=== PATIENT | female | born 1980 | race Caucasian/White ===

== ENCOUNTER 2019-03-26 15:46 | Outpatient (CLI) | payer OTHER ==
[2019-03-26 16:57] LABS: #Eosinphils 0.1 thou/uL (0.0-0.7); #Lymphocytes 1.8 thou/uL (1.20-3.40); #Monocytes 0.4 thou/uL (0.11-0.59); #Neutrophils 3.2 thou/uL (1.40-6.50); %Basophils 0.9 % (0.0-1.0); %Lymphocytes 32.8 % (21.0-51.0); %Monocytes 7.4 % (0.0-10.0); %Neutrophils 57.9 % (42.0-75.0); Hemoglobin 10.4 g/dL (12.0-16.0); Mean Corpuscular HGB CONC 32.1 g/dL (32.0-36.0); Mean Corpuscular Hemoglobin 28.5 pg (27.0-31.0); Mean Corpuscular Volume 88.6 fL (78.0-98.0); Mean Platelet Volume 7.3 fL (7.4-10.4); Platelet Count 252 thou/uL (130-400); RBC Distribution Width 15.4 % (11.5-14.5); Red Blood Cell (RBC) Count 3.66 mill/uL (4.20-5.40); White Blood Cell (WBC) Count 5.5 thou/uL (4.8-10.8)
[2019-03-26 17:20] LABS: BHCG - Serum Negative (NEGATIVE); Pregs Control Background? CLEAR/WHITE (CLR/WHITE); Pregs Control Bar Appear? YES (CONTROL BAR)
== END 2019-03-26 15:47 | disposition home or self-care (01) ==
LOC: LABBT 15:46
PROVIDERS: ATTEND Surgery
DX: Z01.812 Encounter for preprocedural laboratory examination (principal); M79.5 Residual foreign body in soft tissue
CPT/HCPCS: 74177; 80053; 81003; 83605; 84703; 85025; 87040; 87086; J2270; J2405

== ENCOUNTER 2019-03-26 19:41 | Emergency (ER) | payer OTHER ==
[~2019-03-26 19:41] MED LIST: ISOVUE-370 76%-LOCM 1 ML ONE
[2019-03-26] MEDS ORDERED: Ondansetron PF 4 MG/2 ML Vial ONE ×2 (20:32→22:25)
[2019-03-26 20:33] LABS: #Eosinphils 0.1 thou/uL (0.0-0.7); #Monocytes 0.5 thou/uL (0.11-0.59); #Neutrophils 2.7 thou/uL (1.40-6.50); %Basophils 0.3 % (0.0-1.0); %Eosinophils 1.1 % (0.0-10.0); %Lymphocytes 37.4 % (21.0-51.0); %Monocytes 8.9 % (0.0-10.0); %Neutrophils 52.3 % (42.0-75.0); Hemoglobin 10.2 g/dL (12.0-16.0); Mean Corpuscular HGB CONC 32.5 g/dL (32.0-36.0); Mean Corpuscular Hemoglobin 28.5 pg (27.0-31.0); Mean Corpuscular Volume 87.8 fL (78.0-98.0); Mean Platelet Volume 7.6 fL (7.4-10.4); Platelet Count 253 thou/uL (130-400); RBC Distribution Width 15.5 % (11.5-14.5); Red Blood Cell (RBC) Count 3.56 mill/uL (4.20-5.40); White Blood Cell (WBC) Count 5.3 thou/uL (4.8-10.8)
[2019-03-26] MEDS ORDERED: Morphine 4 MG/ML VIAL ONE (20:47)
[2019-03-26 20:57] LABS: ALT (SGPT) 33 U/L (8-55); AST (SGOT) 35 U/L (5-34); Albumin 3.6 g/dL (3.5-5.0); Alkaline Phosphatase 93 U/L (40-110); Anion Gap 11 mmol/L (10-20); BUN (Urea Nitrogen) 11 mg/dL (7.0-18.7); Bilirubin, Total Less than 0.2 mg/dL (0.2-1.2); Calc. Creatinine Clearance 0 mL/min (70-130); Calcium 8.5 mg/dL (7.8-10.44); Carbon Dioxide 21 mmol/L (22-29); Chloride 104 mmol/L (98-107); Estimated GFR-MDRD 84; Globulin 2.3 g/dL (2.4-3.5); Glucose 93 mg/dL (70-105); Protein, Total 5.9 g/dL (6.0-8.3); Sodium 132 mmol/L (136-145)
--- NOTE | 2019-03-26 21:04 | CT ---
ABDOMEN CT WITH CONTRAST PELVIC CT WITH CONTRAST 03/26/19 HISTORY: Left lower quadrant pain, fever and hematoma. Patient is scheduled to have foreign body removed tomor row. FINDINGS: ABDOMEN CT: Dependent atelectatic changes of the lung bases. Heart size is normal. No significant pericardial flu id. Gallbladder is surgically absent. Portal vein is patent. Nonspecific 1.1 x 1.3 cm hypodensity in the right hepatic lobe, unchanged from a CT angiogram of the chest performed in March 2014. Otherwise, the hepatic parenchyma is unremarkable. Spleen, pancrea s, and adrenal glands have appropriate attenuation and enhancement. Symmetric enhancement of the kidn eys. Bilaterally, no obstructive uropathy. No gastrohepatic, retrocrural or periportal lymphadenopathy. No mesenteric mass, lymphadenopathy, free air or free fluid. Limited evaluation of the alimentary canal by lack of oral contrast administration. There is evidence of previous bariatric surgery. No definite small bowel obstruction. Ileocecal junction is unremarkab le. Appendix is difficult to appreciate. No obvious inflammation at the cecal apex. Scattered fecal m aterial in a nondistended, nondilated colon. Sigmoid colon diverticulosis. No diverticulitis. ABDOMINAL WALL: There is an 8 mm calcification in the anterior left abdominal wall (axial image 55, series 2). CT PELVIS: Unremarkable urinary bladder. No pelvic mass, lymphadenopathy, free air or free fluid. Uterus is unre markable. Hypodensities in the left and right adnexa may represent bilateral ovarian cysts measuring 2.7 x 2.8 on the right and 3.5 x 2.9 on the left. OSSEOUS STRUCTURES: No lytic or blastic lesions. IMPRESSION: 1. Metallic foreign body in the anterior left abdominal wall. 2. No evidence of bowel obstruction. Appendix is not appreciated. Nevertheless, no inflammation of the cecal apex. 3. Sigmoid colon diverticulosis, without evidence of diverticulitis. 4. Hypodensities in the left and right adnexa which may represent ovarian cysts. POS: JOSE
[2019-03-26 21:05] LABS: Bilirubin Negative (Negative); Blood, Urine Negative (Negative); Clarity Clear (Clear); Glucose, Urine (Dipstick) Normal (Negative); Leukocyte Negative Leu/uL (Negative); Nitrite Negative (Negative); Protein, Urine (Dipstick) Negative (Neg-Trace); Urobilinogen Normal mg/dL (Less than 2)
== END 2019-03-26 22:35 | disposition home or self-care (01) ==
LOC: ERS 19:41
DX: S30.851A Superficial foreign body of abdominal wall, initial encounter (principal); S30.1XXA Contusion of abdominal wall, initial encounter; F41.9 Anxiety disorder, unspecified; F32.9 Major depressive disorder, single episode, unspecified; Z79.899 Other long term (current) drug therapy; W01.119A Fall on same level from slipping, tripping and stumbling with subsequent striking against unspecified sharp object, initial encounter
CPT/HCPCS: 51701; 74177; 80053; 81003; 83605; 84703; 85025; 87040; 87086; 96361; 96374; 96375; 96376; J2270; J2405

== ENCOUNTER 2019-03-27 07:43 | Day surgery (SDC) | payer OTHER ==
[2019-03-26 15:54] VITALS: BMI 32.8
[2019-03-27] MEDS ORDERED: Scopolamine 1.5 mg/72 hour Patch ONE (08:58)
[2019-03-27] MEDS ORDERED: Midazolam HCl 2 mg/2 ml Vial ONE (09:00)
[2019-03-27] MEDS ORDERED: Bupivacaine/Epinephrine 0.25% 30 ML VIAL ONE (09:19)
[2019-03-27] MEDS ORDERED: Midazolam HCl 5 mg/5 ml Vial ONE (09:20)
[2019-03-27] MEDS ORDERED: Fentanyl 250 MCG/5 ML VIAL ONE (09:20)
[2019-03-27] MEDS ORDERED: Promethazine HCl 25 MG/ML VIAL ONE (10:31)
[2019-03-27] MEDS ORDERED: Fentanyl 100 MCG/2 ML VIAL ONE (10:43)
[2019-03-27] MEDS ORDERED: Ondansetron ODT 4 MG TAB ONE (12:19)
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
[2019-03-27] MEDS ORDERED: Dexamethasone 20 MG/5 ML VIAL ONE (18:49)
[2019-03-27] MEDS ORDERED: PROPOFOL 200 MG/20 ML VIAL ONE (18:49)
[2019-03-27] MEDS ORDERED: Ondansetron PF 4 MG/2 ML Vial ONE (18:49)
[2019-03-27] MEDS ORDERED: Lidocaine 1% PF 5 ML VIAL ONE (18:49)
== END 2019-03-28 12:30 | disposition home or self-care (01) ==
LOC: SDC 07:43
PROVIDERS: ATTEND Surgery
PROC: 0JC80ZZ Extirpation of Matter from Abdomen Subcutaneous Tissue and Fascia, Open Approach (ICD-10-PCS; principal; 2019-03-27)
DX: S30.851A Superficial foreign body of abdominal wall, initial encounter (principal); R56.9 Unspecified convulsions; M32.9 Systemic lupus erythematosus, unspecified; Z79.899 Other long term (current) drug therapy; Z88.0 Allergy status to penicillin; W01.118A Fall on same level from slipping, tripping and stumbling with subsequent striking against other sharp object, initial encounter
CPT/HCPCS: 87070; 87205; 88305; J0690; J1100; J2001; J2250; J2405; J2550; J2704; J3010; Q0162; Q9966

== ENCOUNTER 2019-04-01 05:38 | Inpatient (IN) | payer OTHER ==
[2019-04-01] MEDS ORDERED: Morphine 4 MG/ML VIAL ONE (06:14)
[2019-04-01] MEDS ORDERED: Bacitracin 1 PK ONE (06:14)
[2019-04-01 06:20] LABS: #Eosinphils 0.1 thou/uL (0.0-0.7); #Lymphocytes 1.5 thou/uL (1.20-3.40); #Monocytes 0.4 thou/uL (0.11-0.59); #Neutrophils 5.3 thou/uL (1.40-6.50); %Basophils 0.5 % (0.0-1.0); %Eosinophils 1.1 % (0.0-10.0); %Lymphocytes 20.8 % (21.0-51.0); %Monocytes 5.3 % (0.0-10.0); %Neutrophils 72.4 % (42.0-75.0); Hemoglobin 10.1 g/dL (12.0-16.0); Mean Corpuscular HGB CONC 32.1 g/dL (32.0-36.0); Mean Corpuscular Hemoglobin 28.7 pg (27.0-31.0); Mean Corpuscular Volume 89.3 fL (78.0-98.0); Mean Platelet Volume 7.2 fL (7.4-10.4); Platelet Count 255 thou/uL (130-400); RBC Distribution Width 15.2 % (11.5-14.5); Red Blood Cell (RBC) Count 3.54 mill/uL (4.20-5.40); White Blood Cell (WBC) Count 7.3 thou/uL (4.8-10.8)
[2019-04-01 06:37] LABS: ALT (SGPT) 58 U/L (8-55); AST (SGOT) 93 U/L (5-34); Albumin 3.4 g/dL (3.5-5.0); Alcohol Less than 10 mg/dL (Less than 10); Alkaline Phosphatase 90 U/L (40-110); Anion Gap 11 mmol/L (10-20); BUN (Urea Nitrogen) 11 mg/dL (7.0-18.7); Bilirubin, Total 0.3 mg/dL (0.2-1.2); Calc. Creatinine Clearance 0 mL/min (70-130); Calcium 8.8 mg/dL (7.8-10.44); Carbon Dioxide 23 mmol/L (22-29); Chloride 107 mmol/L (98-107); Estimated GFR-MDRD 86; Globulin 2.3 g/dL (2.4-3.5); Glucose 84 mg/dL (70-105); Potassium 3.9 mmol/L (3.5-5.1); Protein, Total 5.7 g/dL (6.0-8.3); Sodium 137 mmol/L (136-145)
[2019-04-01 06:40] LABS: BHCG - Serum Negative (NEGATIVE); Pregs Control Background? CLEAR/WHITE (CLR/WHITE); Pregs Control Bar Appear? YES (CONTROL BAR)
[2019-04-01 07:03] LABS: Bilirubin Negative (Negative); Blood, Urine Negative (Negative); Glucose, Urine (Dipstick) Negative (Negative); Leukocyte Negative (Negative); Nitrite Negative (Negative); Protein, Urine (Dipstick) Negative (Neg-Trace); Urobilinogen 0.2 mg/dL (Less than 2)
[2019-04-01] MEDS ORDERED: hydrALAZINE 20 MG/ML VIAL SLOW IVP PRN (07:03)
[2019-04-01] MEDS ORDERED: Morphine 2 MG/ML SYRINGE SLOW IVP PRN (07:03)
[2019-04-01] MEDS ORDERED: Morphine 4 MG/ML VIAL SLOW IVP PRN ×2 (07:03→16:47)
[2019-04-01] MEDS ORDERED: Ondansetron PF 4 MG/2 ML Vial IVP PRN (07:03)
[2019-04-01] MEDS ORDERED: Dextrose 5% in Water 1,000 ML IV PRN (07:03)
[2019-04-01] MEDS ORDERED: Dextrose 50% Abboject 50 ML SYRINGE SLOW IVP PRN (07:03)
[2019-04-01 07:11] LABS: Clarity C] (Clear)
[2019-04-01] MEDS ORDERED: Fentanyl 100 MCG/2 ML VIAL ONE ×6 (07:11→15:11)
[2019-04-01] MEDS ORDERED: Sodium Chloride 0.9% 1,000 ML IV SCH (07:15)
[2019-04-01 07:22] LABS: Amphetamine Not Detected (NotDetected); Barbiturates Screen Not Detected (NotDetected); Benzodiazepine Screen Not Detected (NotDetected); Cocaine Metabolite Screen Not Detected (NotDetected); Medtox Control Line Valid? VALID (VALID); Medtox Reader # READER 4; Methadone Not Detected (NotDetected); Methamphetamine Not Detected (NotDetected); Opiate Screen Not Detected (NotDetected); Oxycodone Screen Not Detected (NotDetected); Phencyclidine (PCP) Not Detected (NotDetected); THC/Cannabinoid Screen Not Detected (NotDetected); Tricyclic Screen Not Detected (NotDetected)
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
[2019-04-01] MEDS: Famotidine/PF 20 mg/2ml Vial SLOW IVP SCH ×2 (08:36→21:05)
[2019-04-01 08:46] VITALS: BMI 30.9
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
[2019-04-01] MEDS ORDERED: Levofloxacin 500 mg/D5W 100 ml Premix Bag ONE (09:52)
[2019-04-01] MEDS ORDERED: Clindamycin/D5W 900 mg/50 ml Premix Bag ONE (09:52)
[2019-04-01] MEDS ORDERED: PROPOFOL 0 ML ONE (10:06)
[2019-04-01] MEDS ORDERED: Lidocaine 1% PF 5 ML VIAL ONE (10:06)
[2019-04-01] MEDS ORDERED: Rocuronium Bromide 50 MG/5 ML VIAL ONE (10:06)
[2019-04-01] MEDS ORDERED: Thrombin 5000 UNITS/5 ML VIAL ONE (10:20)
[2019-04-01] MEDS ORDERED: Bupivacaine HCl 0.5%/Epinephrine 1:200,000/PF 30 ml Vial ONE (10:20)
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
[2019-04-01] MEDS ORDERED: ISOVUE-370 76%-LOCM 1 ML ONE (12:29)
[2019-04-01] MEDS: Acetaminophen 1,000 MG in Premix Bag 1 BAG IVPB SCH ×3 (12:40→23:16)
[2019-04-01] MEDS ORDERED: Ondansetron PF 4 MG/2 ML Vial ONE ×3 (13:29→14:56)
[2019-04-01] MEDS ORDERED: HYDROmorphone 2 MG/ML VIAL SLOW IVP PRN (14:07)
[2019-04-01] MEDS ORDERED: Promethazine HCl 25 MG/ML VIAL IM PRN (14:07)
[2019-04-01] MEDS ORDERED: Ondansetron HCl/PF 4 MG/2 ML Vial IVP PRN (14:07)
[2019-04-01] MEDS ORDERED: Meperidine HCl/PF 25 MG/ML VIAL SLOW IVP PRN (14:07)
[2019-04-01] MEDS ORDERED: Promethazine HCl 25 MG/ML VIAL ONE (14:15)
[2019-04-01] MEDS ORDERED: Glycopyrrolate 0.2 MG/ML 5 ML SYRINGE ONE (14:56)
[2019-04-01] MEDS ORDERED: PROPOFOL 200 MG/20 ML VIAL ONE (14:56)
[2019-04-01] MEDS ORDERED: Dexamethasone 20 MG/5 ML VIAL ONE (14:56)
[2019-04-01] MEDS ORDERED: diphenhydrAMINE 50 MG/ML VIAL ONE (14:56)
[2019-04-01] MEDS ORDERED: Succinylcholine Chloride 20 MG/ML 10 ml SYRINGE FS ONE (14:56)
[2019-04-01] MEDS ORDERED: Rocuronium Bromide 10 MG/ML (10ML VIAL) ONE (14:56)
[2019-04-01] MEDS ORDERED: Lidocaine 2% PF 5 ML VIAL ONE (14:56)
[2019-04-01] MEDS ORDERED: ePHEDrine 50 MG/ML VIAL ONE (14:56)
[2019-04-01] MEDS ORDERED: Ketorolac Tromethamine 30 MG/ML VIAL ONE (14:56)
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
[2019-04-01] MEDS ORDERED: traMADol HCl 50 MG TAB PO PRN ×2 (16:47)
[2019-04-01] MEDS: clonazePAM 0.5 MG TAB PO SCH ×2 (16:49→21:05)
[2019-04-01] MEDS ORDERED: Naloxone HCl 0.4 mg/ml Vial IV PRN (17:49)
[2019-04-01] MEDS: HYDROmorphone 10 mg/100 ml CADD IV PRN (18:45)
[2019-04-01] MEDS: traMADol HCl 50 MG TAB PO SCH ×2 (18:47→23:15)
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
[2019-04-01] MEDS ORDERED: Gabapentin 300 MG CAP PO SCH (21:00)
[2019-04-01] MEDS: Pregabalin 50 MG CAP PO SCH (21:04)
[2019-04-01] MEDS ORDERED: Promethazine HCl 25 MG/ML VIAL IM/IV PRN (23:29)
[2019-04-02] MEDS: Scopolamine 1.5 mg/72 hour Patch TD SCH (00:06)
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
[2019-04-02] MEDS: Acetaminophen 1,000 MG in Premix Bag 1 BAG IVPB SCH (05:15)
[2019-04-02] MEDS: traMADol HCl 50 MG TAB PO SCH ×3 (05:15→18:19)
[2019-04-02 05:16] LABS: #Lymphocytes 1.5 thou/uL (1.20-3.40); #Monocytes 0.5 thou/uL (0.11-0.59); #Neutrophils 5.1 thou/uL (1.40-6.50); %Basophils 0.1 % (0.0-1.0); %Eosinophils 0.1 % (0.0-10.0); %Lymphocytes 20.6 % (21.0-51.0); %Monocytes 6.5 % (0.0-10.0); %Neutrophils 72.7 % (42.0-75.0); Hemoglobin 7.5 g/dL (12.0-16.0); Mean Corpuscular HGB CONC 32.7 g/dL (32.0-36.0); Mean Corpuscular Hemoglobin 29.1 pg (27.0-31.0); Mean Corpuscular Volume 88.8 fL (78.0-98.0); Mean Platelet Volume 7.3 fL (7.4-10.4); Platelet Count 211 thou/uL (130-400); RBC Distribution Width 15.3 % (11.5-14.5); White Blood Cell (WBC) Count 7.1 thou/uL (4.8-10.8)
[2019-04-02 05:30] LABS: Anion Gap 9 mmol/L (10-20); BUN (Urea Nitrogen) 8 mg/dL (7.0-18.7); Calc. Creatinine Clearance 144 mL/min (70-130); Calcium 8.2 mg/dL (7.8-10.44); Carbon Dioxide 25 mmol/L (22-29); Chloride 103 mmol/L (98-107); Estimated GFR-MDRD Greater than 90; Glucose 106 mg/dL (70-105); Magnesium 1.9 mg/dL (1.6-2.6); Phosphorus 3.8 mg/dL (2.3-4.7); Potassium 4.1 mmol/L (3.5-5.1); Sodium 133 mmol/L (136-145)
[2019-04-02] MEDS: Pregabalin 50 MG CAP PO SCH ×3 (08:17→20:24)
[2019-04-02] MEDS: clonazePAM 0.5 MG TAB PO SCH ×3 (08:17→20:20)
[2019-04-02] MEDS: Famotidine/PF 20 mg/2ml Vial SLOW IVP SCH (08:17)
[2019-04-02] MEDS: DULoxetine 60 MG CAP PO SCH (08:17)
[2019-04-02] MEDS: HYDROmorphone 10 mg/100 ml CADD IV PRN (08:52)
[2019-04-02] MEDS: Acetaminophen 500 MG TAB PO SCH ×3 (09:34→20:34)
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
--- NOTE | 2019-04-02 11:30 | PRG ---
DATE OF SERVICE: 04/02/2019 Ms. Foster is now postop day #1, status post thoracolumbar fusion from T11 to L3. It seems that her pain is well controlled with MAINTENANCE INSTRUCTOR this morning. She has better function in her bilateral lower extremities as her pains have resolved in her legs. She has increased sensation returning to her lateral thighs, which was an issue for surgery yesterday. broad-spectrum antibiotic coverage daily to cover this until drains were discontinued. She will be working with Therapy today, so we will see how this goes. I discussed with her continue to wear the brace, but she is currently lying in bed. It is definitively when she is up and about. We will check Job ID: [id number]
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
[2019-04-02] MEDS: Ferrous Sulfate 325 MG TAB PO SCH (18:18)
[2019-04-02] MEDS: Ascorbic Acid 500 mg Chewable Tablet PO SCH (20:20)
[2019-04-02] MEDS: Senokot S 8.6-50 MG TAB PO SCH (20:21)
[2019-04-02] MEDS ORDERED: Melatonin 3 MG TAB PO PRN (23:25)
[2019-04-03] MEDS: HYDROmorphone 10 mg/100 ml CADD IV PRN ×2 (00:18→16:51)
[2019-04-03] MEDS: Cyclobenzaprine 10 MG TAB PO PRN ×2 (00:19→16:57)
[2019-04-03] MEDS: traMADol HCl 50 MG TAB PO SCH ×3 (00:19→12:15)
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
[2019-04-03] MEDS: Acetaminophen 500 MG TAB PO SCH ×4 (03:32→21:25)
[2019-04-03 06:34] LABS: #Eosinphils 0.1 thou/uL (0.0-0.7); #Lymphocytes 1.3 thou/uL (1.20-3.40); #Monocytes 0.5 thou/uL (0.11-0.59); #Neutrophils 3.7 thou/uL (1.40-6.50); %Basophils 0.5 % (0.0-1.0); %Eosinophils 1.4 % (0.0-10.0); %Lymphocytes 23.9 % (21.0-51.0); %Monocytes 8.6 % (0.0-10.0); %Neutrophils 65.7 % (42.0-75.0); Hemoglobin 6.9 g/dL (12.0-16.0); Mean Corpuscular HGB CONC 31.9 g/dL (32.0-36.0); Mean Corpuscular Hemoglobin 28.7 pg (27.0-31.0); Mean Platelet Volume 7.5 fL (7.4-10.4); Platelet Count 180 thou/uL (130-400); RBC Distribution Width 15.2 % (11.5-14.5); White Blood Cell (WBC) Count 5.6 thou/uL (4.8-10.8)
[2019-04-03] MEDS ORDERED: Enoxaparin Sodium 30 MG/0.3 ML SYRINGE SC SCH ×2 (09:00→15:45)
[2019-04-03] MEDS: Senokot S 8.6-50 MG TAB PO SCH ×2 (09:03→21:26)
[2019-04-03] MEDS: DULoxetine 60 MG CAP PO SCH (09:03)
[2019-04-03] MEDS: Ascorbic Acid 500 mg Chewable Tablet PO SCH ×2 (09:04→21:26)
[2019-04-03] MEDS: Ferrous Sulfate 325 MG TAB PO SCH ×2 (09:04→16:51)
[2019-04-03] MEDS: clonazePAM 0.5 MG TAB PO SCH ×3 (09:05→21:25)
[2019-04-03] MEDS: Pregabalin 50 MG CAP PO SCH ×3 (09:05→21:25)
[2019-04-03] MEDS: Polyethylene Glycol 3350 17 GM Packet PO SCH (09:06)
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
--- NOTE | 2019-04-03 12:45 | PDOC.EVN ---
Event Note - Event Note Event Note: Patient seen at bedside Case reviewed with Trauma PA (Hebert Luna PA-C) See full Dictation, please. Rec: Pt/PTT Pelvic sono Provera 10mg po TID x 3 days, then BID x 2 weeks These have been ordered
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
--- NOTE | 2019-04-03 14:03 | ULT ---
Exam: Pelvic ultrasound including Transabdominal, Transvaginal, And Vascular Duplex with color and spectral Doppler imaging: HISTORY: Heavy bleeding COMPARISON: None FINDINGS: The uterus is 8.7 x 4.7 x 4.6 cm Endometrial thickness:Thickened at 1.2 cm Right ovary:4.8 x 2.5 x 3.4 cm containing a 1.5 x 1.6 x 1.8 cm cyst Left ovary:Not visualized. No abscess or significant abnormal fluid collection. Vascular duplex examination demonstrates no evidence for ovarian torsion IMPRESSION: Small right ovarian follicle cyst. Nonvisualized left ovary.
[2019-04-03 15:06] LABS: PTT 30.2 SEC (22.9-36.1); Prothrombin Time 13.5 SEC (12.0-14.7)
[2019-04-03] MEDS: medroxyPROGESTERone Acetate 5 MG TAB PO SCH ×2 (15:09→21:25)
--- NOTE | 2019-04-03 15:46 | PDOC.EVN ---
Event Note - Event Note Event Note: sono unremarkable for 39 year old menstruating female. Pt and PTT ok
[2019-04-03 22:38] LABS: Hemoglobin 8.3 g/dL (12.0-16.0); Platelet Count 192 thou/uL (130-400)
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
[2019-04-04] MEDS: Acetaminophen 500 MG TAB PO SCH ×4 (02:30→21:51)
[2019-04-04] MEDS: Cyclobenzaprine 10 MG TAB PO PRN ×2 (02:30→14:56)
[2019-04-04 06:42] LABS: Hemoglobin 8.2 g/dL (12.0-16.0); Platelet Count 198 thou/uL (130-400)
[2019-04-04 07:03] LABS: Anion Gap 11 mmol/L (10-20); BUN (Urea Nitrogen) 6 mg/dL (7.0-18.7); Calc. Creatinine Clearance 161 mL/min (70-130); Calcium 8.3 mg/dL (7.8-10.44); Carbon Dioxide 25 mmol/L (22-29); Chloride 102 mmol/L (98-107); Estimated GFR-MDRD Greater than 90; Glucose 103 mg/dL (70-105); Potassium 3.9 mmol/L (3.5-5.1); Sodium 134 mmol/L (136-145)
--- NOTE | 2019-04-04 08:44 | PRG ---
DATE OF SERVICE: 04/04/2019 Ms. Foster is now postop day 3, following thoracolumbar fusion construct. Her pain is still significant, but well controlled with the IDENTIFIER HORSE. Her drains have tapered to a point where we will remove them today. I need an attempt to do so yesterday, but she was in the procedure and we were unable to do so. Drains were discontinued. She tolerated that well. Her brace has been on and has been mostly comfortable. She has been getting herself out of bed to bedside commode, although this is significantly uncomfortable for her. She is still doing this successfully. Disposition planning is currently underway. Deferring to primary team for this purpose. Neurosurgery is perspective she is safe for discharge at any time. She will need to be following up with us in 2 weeks. We will continue to follow her hospital course while she is admitted. Job ID: [id number]
[2019-04-04] MEDS: Enoxaparin Sodium 30 MG/0.3 ML SYRINGE SC SCH (09:03)
[2019-04-04] MEDS: Polyethylene Glycol 3350 17 GM Packet PO SCH (09:04)
[2019-04-04] MEDS: Senokot S 8.6-50 MG TAB PO SCH ×2 (09:04→21:51)
[2019-04-04] MEDS: Pregabalin 50 MG CAP PO SCH ×3 (09:04→21:49)
[2019-04-04] MEDS: Ferrous Sulfate 325 MG TAB PO SCH ×2 (09:05→17:23)
[2019-04-04] MEDS: Ascorbic Acid 500 mg Chewable Tablet PO SCH ×2 (09:05→21:48)
[2019-04-04] MEDS: DULoxetine 60 MG CAP PO SCH (09:05)
[2019-04-04] MEDS: medroxyPROGESTERone Acetate 5 MG TAB PO SCH ×3 (09:06→21:48)
[2019-04-04] MEDS: clonazePAM 0.5 MG TAB PO SCH ×3 (09:06→21:48)
[2019-04-04] MEDS ORDERED: Morphine 4 MG/ML VIAL SLOW IVP PRN (09:14)
[2019-04-04] MEDS ORDERED: Morphine 2 MG/ML SYRINGE SLOW IVP PRN (09:28)
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
[2019-04-04] MEDS: HYDROcodone/Acetaminophen 10/325 mg Tablet PO PRN ×3 (10:51→18:43)
[2019-04-04] MEDS: traMADol HCl 50 MG TAB PO SCH ×3 (11:36→23:06)
--- NOTE | 2019-04-04 15:22 | EEG ---
Referring Physician: Darshan COLEMAN EEG # [id number] TEST TYPE: ROUTINE PORTABLE INPATIENT REPORT: AN EEG USING THE INTERNATIONAL TEN-TWENTY SYSTEM OF ELECTRODE PLACEMENT WAS PERFORMED. The waking background is a medium amplitude 9 hertz alpha frequency. The patient remained awake throughout the study. Hyperventilation and photic stimulation were unremarkable. No epileptiform features were present. IMPRESSION: THIS IS A NORMAL AWAKE EEG. Lead Retail Sales Associate: BARRY Automatic Pinsetter Mechanic: TIFFANY ARREOLA
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
[2019-04-04] MEDS: Zolpidem Tartrate 5 MG TAB PO PRN (21:54)
[2019-04-04] MEDS ORDERED: traMADol HCl 50 MG TAB PO PRN (22:41)
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
[2019-04-04] MEDS: Scopolamine 1.5 mg/72 hour Patch TD SCH (23:09)
[2019-04-05] MEDS: HYDROcodone/Acetaminophen 10/325 mg Tablet PO PRN ×6 (00:29→22:50)
[2019-04-05] MEDS ORDERED: Hydrocortisone Sod Succ/PF 100 mg/2 ml Vial IVP SCH (02:00)
[2019-04-05] MEDS: Cyclobenzaprine 10 MG TAB PO PRN ×2 (02:54→11:25)
[2019-04-05] MEDS: Acetaminophen 500 MG TAB PO SCH ×2 (04:43→08:49)
[2019-04-05] MEDS: traMADol HCl 50 MG TAB PO SCH ×2 (05:50→17:56)
[2019-04-05] MEDS: Pregabalin 50 MG CAP PO SCH ×3 (08:44→20:53)
[2019-04-05] MEDS: clonazePAM 0.5 MG TAB PO SCH ×3 (08:45→20:54)
[2019-04-05] MEDS: Ferrous Sulfate 325 MG TAB PO SCH ×2 (08:45→17:58)
[2019-04-05] MEDS: Senokot S 8.6-50 MG TAB PO SCH ×2 (08:46→20:55)
[2019-04-05] MEDS: Hydrocortisone Sod Succ/PF 100 mg/2 ml Vial IVP SCH ×3 (08:46→20:49)
[2019-04-05] MEDS: DULoxetine 60 MG CAP PO SCH (08:46)
[2019-04-05] MEDS: medroxyPROGESTERone Acetate 5 MG TAB PO SCH ×3 (08:47→20:55)
[2019-04-05] MEDS: Ascorbic Acid 500 mg Chewable Tablet PO SCH ×2 (09:43→20:54)
[2019-04-05] MEDS: Bisacodyl 10 MG SUPP PR SCH ×2 (09:44→17:00)
[2019-04-05] MEDS: Polyethylene Glycol 3350 17 GM Packet PO SCH (09:44)
[2019-04-05] MEDS: Enoxaparin Sodium 30 MG/0.3 ML SYRINGE SC SCH (09:48)
[2019-04-05] MEDS ORDERED: traMADol HCl 50 MG TAB PO ONE (10:00)
[2019-04-05] MEDS ORDERED: traMADol HCl 50 MG TAB PO SCH (10:00)
[2019-04-05] MEDS ORDERED: Acetaminophen 500 MG TAB PO SCH (10:00)
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
[2019-04-05] MEDS: Acetaminophen 325 MG TAB PO SCH ×2 (12:59→18:21)
[2019-04-05] MEDS ORDERED: Ibuprofen 600 MG TAB PO SCH (18:00)
[2019-04-05] MEDS: Ibuprofen 600 MG TAB PO SCH (18:23)
[2019-04-05] MEDS: Zolpidem Tartrate 5 MG TAB PO PRN (20:56)
[2019-04-05] MEDS ORDERED: medroxyPROGESTERone Acetate 5 MG TAB PO SCH (21:00)
[2019-04-06] MEDS: Cyclobenzaprine 10 MG TAB PO PRN ×2 (00:14→11:51)
[2019-04-06] MEDS: Acetaminophen 325 MG TAB PO SCH ×4 (00:14→17:17)
[2019-04-06] MEDS: traMADol HCl 50 MG TAB PO SCH ×4 (00:14→17:15)
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
[2019-04-06] MEDS: Bisacodyl 10 MG SUPP PR SCH ×3 (03:02→17:16)
[2019-04-06] MEDS: Ibuprofen 600 MG TAB PO SCH ×3 (03:03→17:14)
[2019-04-06] MEDS: HYDROcodone/Acetaminophen 10/325 mg Tablet PO PRN ×5 (03:03→18:49)
[2019-04-06] MEDS: Hydrocortisone Sod Succ/PF 100 mg/2 ml Vial IVP SCH ×2 (03:05→09:01)
[2019-04-06 04:42] LABS: #Lymphocytes 0.9 thou/uL (1.20-3.40); #Monocytes 0.3 thou/uL (0.11-0.59); #Neutrophils 3.9 thou/uL (1.40-6.50); %Basophils 0.4 % (0.0-1.0); %Eosinophils 0.6 % (0.0-10.0); %Lymphocytes 17.6 % (21.0-51.0); %Monocytes 6.7 % (0.0-10.0); %Neutrophils 74.8 % (42.0-75.0); Hemoglobin 7.9 g/dL (12.0-16.0); Mean Corpuscular HGB CONC 31.7 g/dL (32.0-36.0); Mean Corpuscular Hemoglobin 28.7 pg (27.0-31.0); Mean Corpuscular Volume 90.7 fL (78.0-98.0); Mean Platelet Volume 7.3 fL (7.4-10.4); Platelet Count 237 thou/uL (130-400); RBC Distribution Width 16.4 % (11.5-14.5); Red Blood Cell (RBC) Count 2.76 mill/uL (4.20-5.40); White Blood Cell (WBC) Count 5.1 thou/uL (4.8-10.8)
--- NOTE | 2019-04-06 06:16 | PDOC.EVN ---
Event Note - Event Note Event Note: OBGYN Bed Check follow up Patient seen at bedside Please see dictation
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
[2019-04-06] MEDS ORDERED: medroxyPROGESTERone Acetate 5 MG TAB PO SCH ×2 (09:00)
[2019-04-06] MEDS: DULoxetine 60 MG CAP PO SCH (09:01)
[2019-04-06] MEDS: Polyethylene Glycol 3350 17 GM Packet PO SCH (09:01)
[2019-04-06] MEDS: Pregabalin 50 MG CAP PO SCH ×3 (09:01→21:40)
[2019-04-06] MEDS: Senokot S 8.6-50 MG TAB PO SCH ×2 (09:02→21:42)
[2019-04-06] MEDS: Ferrous Sulfate 325 MG TAB PO SCH ×2 (09:02→17:14)
[2019-04-06] MEDS: clonazePAM 0.5 MG TAB PO SCH ×3 (09:02→21:43)
[2019-04-06] MEDS: Ascorbic Acid 500 mg Chewable Tablet PO SCH ×2 (09:03→21:42)
[2019-04-06] MEDS: medroxyPROGESTERone Acetate 5 MG TAB PO SCH ×3 (09:03→21:43)
[2019-04-06] MEDS: Enoxaparin Sodium 30 MG/0.3 ML SYRINGE SC SCH (09:04)
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
[2019-04-06] MEDS: Zolpidem Tartrate 5 MG TAB PO PRN (21:43)
[2019-04-07] MEDS: HYDROcodone/Acetaminophen 10/325 mg Tablet PO PRN ×6 (00:34→21:18)
[2019-04-07] MEDS: traMADol HCl 50 MG TAB PO SCH ×4 (00:35→18:44)
[2019-04-07] MEDS: Acetaminophen 325 MG TAB PO SCH ×4 (00:37→18:45)
[2019-04-07] MEDS: Bisacodyl 10 MG SUPP PR SCH ×3 (00:56→15:56)
[2019-04-07] MEDS: Ibuprofen 600 MG TAB PO SCH ×3 (02:40→18:44)
[2019-04-07] MEDS: Cyclobenzaprine 10 MG TAB PO PRN (02:40)
[2019-04-07 04:45] LABS: #Basophils 0.1 thou/uL (0.0-0.2); #Eosinphils 0.1 thou/uL (0.0-0.7); #Lymphocytes 2.4 thou/uL (1.20-3.40); #Monocytes 0.4 thou/uL (0.11-0.59); #Neutrophils 2.1 thou/uL (1.40-6.50); %Basophils 1.4 % (0.0-1.0); %Eosinophils 2.1 % (0.0-10.0); %Lymphocytes 47.5 % (21.0-51.0); %Monocytes 7.7 % (0.0-10.0); %Neutrophils 41.3 % (42.0-75.0); Hemoglobin 7.6 g/dL (12.0-16.0); Mean Corpuscular HGB CONC 32.2 g/dL (32.0-36.0); Mean Corpuscular Volume 89.8 fL (78.0-98.0); Mean Platelet Volume 6.9 fL (7.4-10.4); Platelet Count 263 thou/uL (130-400); RBC Distribution Width 16.6 % (11.5-14.5); Red Blood Cell (RBC) Count 2.62 mill/uL (4.20-5.40); White Blood Cell (WBC) Count 5.1 thou/uL (4.8-10.8)
[2019-04-07] MEDS: DULoxetine 60 MG CAP PO SCH (08:27)
[2019-04-07] MEDS: Pregabalin 50 MG CAP PO SCH ×3 (08:29→21:19)
[2019-04-07] MEDS: Ferrous Sulfate 325 MG TAB PO SCH ×2 (08:29→15:55)
[2019-04-07] MEDS: medroxyPROGESTERone Acetate 5 MG TAB PO SCH ×2 (08:30→21:20)
[2019-04-07] MEDS: Ascorbic Acid 500 mg Chewable Tablet PO SCH ×2 (08:30→21:17)
[2019-04-07] MEDS: Enoxaparin Sodium 30 MG/0.3 ML SYRINGE SC SCH (08:31)
[2019-04-07] MEDS: clonazePAM 0.5 MG TAB PO SCH ×3 (08:36→21:17)
[2019-04-07] MEDS: Polyethylene Glycol 3350 17 GM Packet PO SCH (08:39)
[2019-04-07] MEDS: Senokot S 8.6-50 MG TAB PO SCH ×2 (08:39→21:18)
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
[2019-04-07] MEDS: Zolpidem Tartrate 5 MG TAB PO PRN (22:08)
[2019-04-08] MEDS: Bisacodyl 10 MG SUPP PR SCH ×3 (00:25→16:59)
[2019-04-08] MEDS: traMADol HCl 50 MG TAB PO SCH ×4 (00:26→17:22)
[2019-04-08] MEDS: Acetaminophen 325 MG TAB PO SCH ×4 (00:26→18:05)
[2019-04-08] MEDS: Scopolamine 1.5 mg/72 hour Patch TD SCH (00:28)
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
[2019-04-08] MEDS: HYDROcodone/Acetaminophen 10/325 mg Tablet PO PRN ×5 (02:04→18:31)
[2019-04-08] MEDS: Ibuprofen 600 MG TAB PO SCH ×4 (02:05→20:12)
[2019-04-08 05:44] LABS: #Eosinphils 0.1 thou/uL (0.0-0.7); #Lymphocytes 2.1 thou/uL (1.20-3.40); #Monocytes 0.4 thou/uL (0.11-0.59); %Basophils 0.9 % (0.0-1.0); %Lymphocytes 44.4 % (21.0-51.0); %Monocytes 9.1 % (0.0-10.0); %Neutrophils 43.7 % (42.0-75.0); Hemoglobin 7.8 g/dL (12.0-16.0); Mean Corpuscular HGB CONC 31.8 g/dL (32.0-36.0); Mean Corpuscular Hemoglobin 28.8 pg (27.0-31.0); Mean Corpuscular Volume 90.6 fL (78.0-98.0); Mean Platelet Volume 6.6 fL (7.4-10.4); Platelet Count 289 thou/uL (130-400); RBC Distribution Width 16.8 % (11.5-14.5); Red Blood Cell (RBC) Count 2.72 mill/uL (4.20-5.40); White Blood Cell (WBC) Count 4.6 thou/uL (4.8-10.8)
[2019-04-08] MEDS: DULoxetine 60 MG CAP PO SCH (09:10)
[2019-04-08] MEDS: Enoxaparin Sodium 30 MG/0.3 ML SYRINGE SC SCH (09:10)
[2019-04-08] MEDS: Pregabalin 50 MG CAP PO SCH ×3 (09:11→20:11)
[2019-04-08] MEDS: clonazePAM 0.5 MG TAB PO SCH ×3 (09:11→20:11)
[2019-04-08] MEDS: Ferrous Sulfate 325 MG TAB PO SCH ×2 (09:12→17:23)
[2019-04-08] MEDS: medroxyPROGESTERone Acetate 5 MG TAB PO SCH (09:12)
[2019-04-08] MEDS: Polyethylene Glycol 3350 17 GM Packet PO SCH (09:13)
[2019-04-08] MEDS: Senokot S 8.6-50 MG TAB PO SCH ×2 (09:13→20:12)
[2019-04-08] MEDS: Ascorbic Acid 500 mg Chewable Tablet PO SCH ×2 (09:13→20:12)
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
[2019-04-08 12:42] LABS: Reticulocyte Count 3.9 % (0.5-1.5)
[2019-04-08 12:47] LABS: #Eosinphils 0.1 thou/uL (0.0-0.7); #Lymphocytes 1.8 thou/uL (1.20-3.40); #Monocytes 0.4 thou/uL (0.11-0.59); #Neutrophils 2.5 thou/uL (1.40-6.50); %Basophils 0.7 % (0.0-1.0); %Eosinophils 1.3 % (0.0-10.0); %Lymphocytes 37.8 % (21.0-51.0); %Neutrophils 52.2 % (42.0-75.0); Mean Corpuscular HGB CONC 31.5 g/dL (32.0-36.0); Mean Corpuscular Hemoglobin 28.4 pg (27.0-31.0); Mean Corpuscular Volume 90.4 fL (78.0-98.0); Mean Platelet Volume 6.8 fL (7.4-10.4); Platelet Count 312 thou/uL (130-400); RBC Distribution Width 16.8 % (11.5-14.5); Red Blood Cell (RBC) Count 2.82 mill/uL (4.20-5.40); White Blood Cell (WBC) Count 4.9 thou/uL (4.8-10.8)
[2019-04-08 13:13] LABS: Iron 57 ug/dL (50-170); Iron Binding Capacity, Total 353 mcg/dL (265-497)
[2019-04-08 15:55] VITALS: BP 115/65; TEMP 97.1
[2019-04-08] MEDS: Cyclobenzaprine 10 MG TAB PO PRN (20:11)
== END 2019-04-08 20:20 | DRG 460 ==
LOC: ERS 05:38 → SURG A 07:03
PROVIDERS: ADMIT Specialist; ATTEND Specialist
PROC: 0RG6071 Fusion of Thoracic Vertebral Joint with Autologous Tissue Substitute, Posterior Approach, Posterior Column, Open Approach (ICD-10-PCS; principal; 2019-04-01)
PROC: 0SG1071 Fusion of 2 or more Lumbar Vertebral Joints with Autologous Tissue Substitute, Posterior Approach, Posterior Column, Open Approach (ICD-10-PCS; 2019-04-01)
PROC: 0QS00ZZ Reposition Lumbar Vertebra, Open Approach (ICD-10-PCS; 2019-04-01)
PROC: 0RGA071 Fusion of Thoracolumbar Vertebral Joint with Autologous Tissue Substitute, Posterior Approach, Posterior Column, Open Approach (ICD-10-PCS; 2019-04-01)
PROC: 4A023FZ Measurement of Cardiac Rhythm, Percutaneous Approach (ICD-10-PCS; 2019-04-05)
PROC: 4A0234Z Measurement of Cardiac Electrical Activity, Percutaneous Approach (ICD-10-PCS; 2019-04-05)
DX: S32.011A Stable burst fracture of first lumbar vertebra, initial encounter for closed fracture (principal); S22.20XA Unspecified fracture of sternum, initial encounter for closed fracture; S22.069A Unspecified fracture of T7-T8 vertebra, initial encounter for closed fracture; S27.329A Contusion of lung, unspecified, initial encounter; D62 Acute posthemorrhagic anemia; R56.9 Unspecified convulsions; F41.9 Anxiety disorder, unspecified; N92.0 Excessive and frequent menstruation with regular cycle; F32.9 Major depressive disorder, single episode, unspecified; W13.1XXA Fall from, out of or through bridge, initial encounter; W22.11XA Striking against or struck by driver side automobile airbag, initial encounter; Z88.1 Allergy status to other antibiotic agents; Z88.8 Allergy status to other drugs, medicaments and biological substances; Z90.49 Acquired absence of other specified parts of digestive tract; Z98.84 Bariatric surgery status; I95.9 Hypotension, unspecified; G40.909 Epilepsy, unspecified, not intractable, without status epilepticus
CPT/HCPCS: 36415; 36416; 36430; 51702; 70450; 71045; 71260; 72125; 72170; 74177; 76000; 76856; 80048; 80053; 80306; 80307; 81003; 82533; 82728; 83540; 83550; 83735; 84100; 84703; 85014; 85018; 85025; 85046; 85049; 85610; 85730; 86850; 86900; 86901; 94760; 95816; 95819; 96372; 96374; C1713; C1768; G0390; J0131; J0670; J1100; J1200; J1650; J1720; J1885; J1956; J2001; J2270; J2405; J2550; J2704; J3010; J3490; L0639; P9016; Q9966; S0028

== ENCOUNTER 2019-04-16 15:23 | Outpatient (CLI) | payer OTHER ==
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
== END 2019-04-16 15:24 | disposition home or self-care (01) ==
LOC: TBSIIMAG 15:23
PROVIDERS: ATTEND Neurological Surgery
DX: S22.089A Unspecified fracture of T11-T12 vertebra, initial encounter for closed fracture (principal); S32.011A Stable burst fracture of first lumbar vertebra, initial encounter for closed fracture; Z98.890 Other specified postprocedural states
CPT/HCPCS: 72072; 72100

== ENCOUNTER 2019-05-02 20:33 | Inpatient (IN) | payer OTHER ==
[2019-05-02] MEDS ORDERED: Morphine 4 MG/ML VIAL ONE ×2 (21:21→23:08)
[2019-05-02 21:55] LABS: #Eosinphils 0.1 thou/uL (0.0-0.7); #Lymphocytes 1.8 thou/uL (1.20-3.40); #Monocytes 0.5 thou/uL (0.11-0.59); #Neutrophils 3.1 thou/uL (1.40-6.50); %Basophils 0.4 % (0.0-1.0); %Eosinophils 1.3 % (0.0-10.0); %Lymphocytes 33.3 % (21.0-51.0); %Monocytes 8.7 % (0.0-10.0); %Neutrophils 56.3 % (42.0-75.0); Mean Corpuscular HGB CONC 31.4 g/dL (32.0-36.0); Mean Corpuscular Hemoglobin 28.7 pg (27.0-31.0); Mean Corpuscular Volume 91.5 fL (78.0-98.0); Mean Platelet Volume 6.7 fL (7.4-10.4); Platelet Count 264 thou/uL (130-400); RBC Distribution Width 14.9 % (11.5-14.5); Red Blood Cell (RBC) Count 3.46 mill/uL (4.20-5.40); White Blood Cell (WBC) Count 5.5 thou/uL (4.8-10.8)
[2019-05-02 22:06] LABS: ALT (SGPT) 25 U/L (8-55); AST (SGOT) 24 U/L (5-34); Albumin 3.8 g/dL (3.5-5.0); Alkaline Phosphatase 155 U/L (40-110); Anion Gap 10 mmol/L (10-20); BUN (Urea Nitrogen) 13 mg/dL (7.0-18.7); Bilirubin, Total 0.3 mg/dL (0.2-1.2); Calc. Creatinine Clearance 0 mL/min (70-130); Calcium 8.8 mg/dL (7.8-10.44); Carbon Dioxide 24 mmol/L (22-29); Chloride 109 mmol/L (98-107); Estimated GFR-MDRD Greater than 90; Globulin 2.3 g/dL (2.4-3.5); Glucose 76 mg/dL (70-105); Potassium 3.9 mmol/L (3.5-5.1); Protein, Total 6.1 g/dL (6.0-8.3); Sodium 139 mmol/L (136-145)
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
--- NOTE | 2019-05-02 22:57 | MRI ---
MR the lumbar spine without contrast INDICATION: Reinjury to the back with lower extremity weakness COMPARISON: Lumbar radiographs dated April 16, [address] the chest, abdomen and pelvis dated Mar. TECHNIQUE: Multiplanar multisequence MR images were obtained of lumbar spine without IV contrast. FINDINGS: Bone marrow: There is residual marrow edema involving L1 burst fracture. There is susceptibility corina fact from spinal instrumentation spanning the fracture site, extending from T11 through L3. Again seen is retropulsed bone fragments from the posterior superior margin of L1 causing at least 50% narr owing of the spinal canal at T12-L1. This is slightly more prominent on the right lateral aspect of the canal where there is approximate 75% canal narrowing. The degree of the narrowing appears stable to the comparison CT evaluation. No new acute fracture is evident. There is edematous change within the paraspinal musculature near the operative site, likely postoperative in nature. Distal spinal cord and conus: Normal. The conus seen to terminate at T12-L1. Visualized retroperitoneum and paraspinal soft tissues: Normal. Vertebral levels: L5-S1: No appreciable central canal or neuroforaminal narrowing.. L4-5: No appreciable central canal or neuroforaminal narrowing. L3-4: There is a broad-based bulge at L3-L4 causing mild effacement of the subarachnoid space. No ericka ral foraminal narrowing. L2-3: No appreciable central canal or neuroforaminal narrowing. L1-L2: Retropulsed bone fragments from the burst fracture L1 causes mild narrowing of the neural fora millicent. T12-L1: Moderate to severe central canal narrowing as detailed above. IMPRESSION: 1. Stable overall appearance to the L1 burst fracture causing moderate to severe central canal narrow ing at T12-L1 from retropulsed bone fragments from the posterior superior margin of the L1 fracture. 2. Mild spondylosis of the lumbar spine.
[2019-05-02] MEDS ORDERED: Dexamethasone 10 MG/ML VIAL ONE (23:07)
[2019-05-02] MEDS ORDERED: Ondansetron PF 4 MG/2 ML Vial ONE (23:08)
[2019-05-03] MEDS ORDERED: Promethazine HCl 25 MG/ML VIAL IM PRN ×2 (00:34→02:35)
[2019-05-03] MEDS ORDERED: Milk Of Magnesia 30 ML UDCUP PO PRN (00:34)
[2019-05-03] MEDS ORDERED: Acetaminophen 325 MG TAB PO PRN (00:34)
[2019-05-03] MEDS ORDERED: Mag-Al 1200 mg/1200 mg/30 ML UDCUP PO PRN (00:34)
[2019-05-03] MEDS ORDERED: Promethazine 25 MG TAB PO PRN (00:34)
[2019-05-03] MEDS ORDERED: diphenhydrAMINE 25 MG CAP PO PRN (00:34)
[2019-05-03] MEDS ORDERED: Acetaminophen/Codeine 30-300mg Tablet PO PRN ×2 (00:34)
[2019-05-03] MEDS ORDERED: Sodium Chloride 0.9% 10 ML ONE (00:48)
[2019-05-03] MEDS ORDERED: Thrombin 5000 UNITS/5 ML VIAL ONE (00:48)
[2019-05-03] MEDS ORDERED: Fentanyl 100 MCG/2 ML VIAL ONE ×3 (00:49→05:16)
[2019-05-03] MEDS ORDERED: Lidocaine 2% Jelly 5 ML TUBE ONE (00:49)
[2019-05-03] MEDS ORDERED: Midazolam HCl 2 mg/2 ml Vial ONE (00:49)
[2019-05-03] MEDS ORDERED: HYDROmorphone 0.5 MG/0.5 ML SYRINGE ONE ×3 (00:49→05:04)
[2019-05-03] MEDS ORDERED: Bupivacaine HCl 0.5%/Epinephrine 1:200,000/PF 30 ml Vial ONE (00:50)
[2019-05-03] MEDS ORDERED: Clindamycin/D5W 900 MG in Premix Bag 1 BAG IVPB SCH (01:00)
[2019-05-03] MEDS: Morphine 4 MG/ML VIAL SLOW IVP PRN ×2 (01:03→06:36)
[2019-05-03] MEDS ORDERED: Propofol 500 MG/50 ML VIAL ONE (01:17)
[2019-05-03] MEDS ORDERED: Promethazine HCl 25 MG/ML VIAL ONE (01:17)
[2019-05-03] MEDS ORDERED: Scopolamine 1.5 mg/72 hour Patch ONE ×2 (01:17→01:26)
[2019-05-03] MEDS ORDERED: Clindamycin/D5W 900 mg/50 ml Premix Bag ONE (01:27)
[2019-05-03] MEDS ORDERED: Levofloxacin 500 mg/D5W 100 ml Premix Bag ONE (01:29)
[2019-05-03 01:33] LABS: PTT 28.7 SEC (22.9-36.1); Prothrombin Time 13.6 SEC (12.0-14.7)
[2019-05-03] MEDS ORDERED: Sodium Chloride 0.9% 0 ML ONE (02:11)
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
[2019-05-03] MEDS ORDERED: Ondansetron HCl/PF 4 MG/2 ML Vial IVP PRN (02:35)
[2019-05-03] MEDS ORDERED: Promethazine HCl 25 MG/ML VIAL SLOW IVP PRN (02:35)
[2019-05-03] MEDS ORDERED: HYDROmorphone 2 MG/ML VIAL SLOW IVP PRN (02:35)
[2019-05-03] MEDS ORDERED: Phenylephrine HCL 10 MG/ML VIAL ONE (03:07)
[2019-05-03] MEDS ORDERED: Phenylephrine 1% Nasal Spray 15 ML BOT ONE (03:08)
--- NOTE | 2019-05-03 04:15 | PRG ---
DATE OF SERVICE: 05/03/2019 I met Ms. Foster in the operating room. She is a 39-year-old woman with L1 burst fracture, treated by Dr. Olmos in March with instrumented fusion from T11-L3. She had good neurological function at that time. No decompression was done. She was making a reasonable recovery until yesterday evening. She was moving a box that she thought was quite light, but it turned out to be packed with looks and it forcibly flexed her back and immediately she had back and radiating bilateral leg pain. By 7:00 p.m. in the evening, she went to the restroom, was able to void under control and cleaned herself without any numbness, but sometime thereafter noticed some urinary retention and saddle anesthesia. She came to the emergency department. Imaging of the lumbar spine showed intact instrumentation. An MRI scan was ordered showing compression behind the fracture of the conus medullaris, similar in configuration to what it was at the time of her original presentation. There was no further compression of the spinal cord in the thoracic spine and no cauda equina compression below this. Because of new onset neurological symptoms, we elected to decompress only segment of compression of her neural elements. She was taken to the operating room. Job ID: [id number]
--- NOTE | 2019-05-03 05:05 | OP ---
DATE OF PROCEDURE: 05/03/2019 [employer]N CHIP MAKER: Hawa Sandhu PA-C PREOPERATIVE INDICATION: Prevent neurological deterioration. PREOPERATIVE DIAGNOSES: Prior L1 burst fracture with instrumented fusion, T11 through L3; new onset cauda equina syndrome; stenosis at L1 behind her burst fracture. POSTOPERATIVE DIAGNOSES: Prior L1 burst fracture with instrumented fusion, T11 through L3; new onset cauda equina syndrome; stenosis at L1 behind her burst fracture. PROCEDURES PERFORMED: Reopening thoracolumbar incision; removal of instrumentation, Crosslink; decompressive laminectomy, T12 through L2; and replacement of instrumentation, Crosslink. PREOPERATIVE MEDICATIONS: Clindamycin 900 mg IV and Levaquin 500 mg IV. DRAIN NUMBER: One. DRAIN TYPE: 10-[place] Dharmesh. DESCRIPTION OF PROCEDURE: The patient was brought to the operating room. General endotracheal anesthesia was induced. The patient was positioned on the Dave frame with appropriate padding for the chest and hips. The previous incision was marked out, and the thoracolumbar skin was sterilely prepped and draped. We reopened the previous incision, at least the center two-thirds of that incision. I removed the suture and made our way to the thoracodorsal fascia. We incised the fascia in the midline and reflected paraspinal muscles off the spinous process and lamina of T12, L1, and L2 and removed the paraspinal muscles over the instrumentation. Crosslink was present at the level of the pedicles of L1. Crosslink needed to be removed to give us access for decompression. With the Crosslink out of the way, an Adson rongeur was used to remove the spinous process of T12, L1, and superior portion of L2. Using a high-speed drill, we thinned the lamina. Then, using Kerrison rongeurs, we fashioned a laminectomy from the top of T12 to the bottom half of L2. We widened our laminectomy defect with Kerrison rongeurs carefully until we were lateral to the thecal sac on both sides. We got a good decompression of all the neural elements. We irrigated copiously with bacitracin irrigation. We waxed the bone edges. We controlled bleeding with gentle bipolar cautery. We tunneled the drain inferiorly through a separate stab incision. We replaced the cross length between the two thoracolumbar spinal instrumentation rods. We closed the wound in anatomical layers over the drain. We applied a sterile dressing. This was a clean case, no contamination. Job ID: [id number]
[2019-05-03] MEDS: tiZANidine HCl 4 MG TAB PO PRN ×3 (06:41→21:52)
[2019-05-03] MEDS: Sodium Chloride 0.9% 1,000 ML IV SCH ×2 (06:42→17:42)
[2019-05-03] MEDS: Dexamethasone 4 MG TAB PO SCH ×3 (06:42→17:06)
--- NOTE | 2019-05-03 07:38 | PRG ---
DATE OF SERVICE: 05/03/2019 Ms. Foster is a few hours out from laminectomy for conus medullaris dysfunction/cauda equina injury. She is not sure there has been significant neurological improvement yet. She is just waking from surgery and beginning to feel her legs and perineum again. Her vitals have been stable. On examination, I can get her to wiggle her toes. She can flex the hips, although it hurts to do so. She can flex her knees as well. When I move the Watkins catheter, she cannot feel her perineum. We got a good decompression from T12 through L2 around the area of most compression from her burst fracture. Her instrumentation was quite solid at surgery. I did not see any loosening. I believe Ms. Foster has a reasonable chance of recovery from this and we will engage physical therapy and inpatient rehabilitation for her ongoing convalescence. Job ID: [id number]
[2019-05-03] MEDS: Pregabalin 50 MG CAP PO SCH ×4 (08:04→20:01)
[2019-05-03] MEDS: Clindamycin/D5W 900 MG in Premix Bag 1 BAG IVPB SCH ×2 (08:05→17:07)
[2019-05-03] MEDS ORDERED: FLU VACC QS2019-20(6MOS UP)/PF 60 MCG/0.5 ML SYRINGE IM ONE (09:00)
[2019-05-03] MEDS: HYDROcodone/Acetaminophen 5/325 mg Tablet PO PRN ×3 (09:36→18:27)
[2019-05-03 10:35] VITALS: BMI 32.8
[2019-05-03] MEDS: Morphine 2 MG/ML SYRINGE SLOW IVP PRN ×5 (11:15→21:10)
[2019-05-03] MEDS ORDERED: ePHEDrine/0.9% NaCl/PF SYRINGE 50 mg/10 ml ONE (11:26)
[2019-05-03] MEDS ORDERED: Dexamethasone 20 MG/5 ML VIAL ONE (11:26)
[2019-05-03] MEDS ORDERED: Lidocaine 1% PF 5 ML VIAL ONE (11:26)
[2019-05-03] MEDS ORDERED: Succinylcholine Chloride 20 MG/ML 10 ml SYRINGE FS ONE ×2 (11:26)
[2019-05-03] MEDS ORDERED: Ondansetron PF 4 MG/2 ML Vial ONE (11:26)
[2019-05-03] MEDS ORDERED: PROPOFOL 200 MG/20 ML VIAL ONE (11:26)
[2019-05-03] MEDS ORDERED: PHENYLEPHRINE-NS 100 MCG/ML 10 ML SYRINGE ONE (11:26)
[2019-05-03] MEDS ORDERED: Glycopyrrolate 0.2 MG/ML 5 ML SYRINGE ONE (11:26)
[2019-05-03] MEDS ORDERED: Rocuronium Bromide 10 MG/ML (10ML VIAL) ONE (11:26)
[2019-05-04] MEDS: HYDROcodone/Acetaminophen 5/325 mg Tablet PO PRN ×4 (00:04→13:17)
[2019-05-04] MEDS: Dexamethasone 4 MG TAB PO SCH (00:04)
[2019-05-04] MEDS: Clindamycin/D5W 900 MG in Premix Bag 1 BAG IVPB SCH ×3 (00:05→16:27)
[2019-05-04] MEDS: Morphine 2 MG/ML SYRINGE SLOW IVP PRN ×7 (01:45→22:10)
[2019-05-04] MEDS: Sodium Chloride 0.9% 1,000 ML IV SCH ×2 (03:56→17:40)
[2019-05-04] MEDS: Pregabalin 50 MG CAP PO SCH ×3 (08:08→20:24)
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
[2019-05-04] MEDS: tiZANidine HCl 4 MG TAB PO PRN ×2 (13:17→20:26)
[2019-05-04] MEDS ORDERED: HYDROcodone/Acetaminophen 10/325 mg Tablet PO PRN ×2 (16:12)
[2019-05-04] MEDS: HYDROcodone/Acetaminophen 10/325 mg Tablet PO PRN (18:56)
[2019-05-04] MEDS: clonazePAM 0.5 MG TAB PO SCH (20:24)
[2019-05-05] MEDS: Clindamycin/D5W 900 MG in Premix Bag 1 BAG IVPB SCH ×3 (00:12→16:17)
[2019-05-05] MEDS: HYDROcodone/Acetaminophen 10/325 mg Tablet PO PRN ×5 (01:32→20:09)
[2019-05-05] MEDS: tiZANidine HCl 4 MG TAB PO PRN (02:17)
[2019-05-05] MEDS: Sodium Chloride 0.9% 1,000 ML IV SCH ×2 (06:41→20:07)
--- NOTE | 2019-05-05 07:22 | PRG ---
DATE OF SERVICE: 05/05/2019 Ms. Foster is now 2 days status post lumbar decompression for cauda equina syndrome. She reports overall improved neurologic function. She has more strength in her left leg. She does report numbness along the left foot. She can control bowel and bladder function, but she states that she has overall lack of sensation in the region and it is difficult to know when she has emptied her bladder, and at times when she needs to go. I am optimistic that this will improve as her neurologic dysfunction in the lower extremities has improved dramatically since the time of presentation. She can be discharged at any time to inpatient rehab once that has been arranged. Job ID: [id number]
[2019-05-05] MEDS: Morphine 2 MG/ML SYRINGE SLOW IVP PRN ×3 (07:43→22:53)
[2019-05-05] MEDS: DULoxetine 60 MG CAP PO SCH (08:34)
[2019-05-05] MEDS: clonazePAM 0.5 MG TAB PO SCH ×3 (08:35→20:09)
[2019-05-05] MEDS: Pregabalin 50 MG CAP PO SCH ×3 (08:35→20:08)
[2019-05-05] MEDS: Ondansetron PF 4 MG/2 ML Vial IVP PRN (14:31)
[2019-05-06] MEDS: HYDROcodone/Acetaminophen 10/325 mg Tablet PO PRN ×6 (00:19→22:43)
[2019-05-06] MEDS: tiZANidine HCl 4 MG TAB PO PRN (00:19)
[2019-05-06] MEDS: Clindamycin/D5W 900 MG in Premix Bag 1 BAG IVPB SCH ×3 (00:20→15:51)
[2019-05-06] MEDS: Morphine 2 MG/ML SYRINGE SLOW IVP PRN ×3 (02:53→16:28)
--- NOTE | 2019-05-06 07:17 | PRG ---
DATE OF SERVICE: 05/06/2019 Ms. Foster is 3 days out from a decompressive laminectomy behind a burst fracture. She had already been instrumented, but had neurological decline after lumbar thoracolumbar strain. Over the weekend, there has been improvement in neurological function. There is good motor strength in the right lower extremity. There is weakness in the left. Recorded vital signs look stable to me. Ms. Foster would do well with inpatient rehabilitation. We will check an ultrasound to make sure she has no DVT and then transfer to rehab at any time. Job ID: [id number] [facility]
[2019-05-06] MEDS: DULoxetine 60 MG CAP PO SCH (07:38)
[2019-05-06] MEDS: Pregabalin 50 MG CAP PO SCH ×3 (07:38→20:29)
[2019-05-06] MEDS: clonazePAM 0.5 MG TAB PO SCH ×3 (07:39→20:29)
[2019-05-06] MEDS: Sodium Chloride 0.9% 1,000 ML IV SCH ×2 (09:25→22:17)
[2019-05-06] MEDS: Ondansetron PF 4 MG/2 ML Vial IVP PRN (10:08)
--- NOTE | 2019-05-06 10:12 | ULT ---
EXAM: Bilateral lower extremity venous duplex ultrasound with color and spectral Doppler imaging: HISTORY: Recent postop surgery with decreased mobility. Edema. COMPARISON: None FINDINGS: Exam performed from the groin to the ankle including the visualized greater saphenous, common femoral , superficial femoral, profunda femoral, popliteal, trifurcation, and posterior tibial veins. There is phasic flow with normal compressibility and normal augmentation at all examined levels. No evidence for intraluminal thrombus. IMPRESSION: No evidence for deep venous thrombosis.
[2019-05-06] MEDS: Morphine 4 MG/ML VIAL SLOW IVP PRN ×2 (12:18→20:30)
[2019-05-06] MEDS ORDERED: Dextrose 50% Abboject 50 ML SYRINGE IVP PRN (13:04)
[2019-05-06] MEDS ORDERED: Dextrose 5% in Water 1,000 ML IV PRN (13:04)
[2019-05-07] MEDS: Morphine 4 MG/ML VIAL SLOW IVP PRN ×6 (00:48→23:20)
[2019-05-07] MEDS: tiZANidine HCl 4 MG TAB PO PRN ×2 (04:14→23:20)
[2019-05-07] MEDS: HYDROcodone/Acetaminophen 10/325 mg Tablet PO PRN ×5 (04:14→21:00)
--- NOTE | 2019-05-07 07:16 | PRG ---
DATE OF SERVICE: 05/07/2019 Ms. Foster is 4 days out from a laminectomy behind a burst fracture. She had some cauda equina symptoms that came on after forced flexion and lumbar strain about a month after her instrumented fusion. Ms. Foster sees improvement in her neurological function. She has been walking in the halls. She is bit of a footdrop and weakness in the left leg. Overnight, her vitals are stable. I do not see any fevers recorded on our electronic vital signs. Blood pressure is in the 100s to 110s. Toe wiggles in the left foot. There is activation of the anterior tib and no movement against light resistance yet. Ms. Foster was seen by Social Work just yesterday to start the process of inpatient rehabilitation transfer. I thought that was done last Monday. This will delay us. She may have to spend another day or two here because of that delay. Job ID: [id number]
[2019-05-07] MEDS: clonazePAM 0.5 MG TAB PO SCH ×3 (08:51→20:55)
[2019-05-07] MEDS: DULoxetine 60 MG CAP PO SCH (08:51)
[2019-05-07] MEDS: Pregabalin 50 MG CAP PO SCH ×3 (08:52→20:55)
[2019-05-07] MEDS: Sodium Chloride 0.9% 1,000 ML IV SCH (09:03)
[2019-05-07] MEDS: Ondansetron PF 4 MG/2 ML Vial IVP PRN (12:31)
[2019-05-07] MEDS ORDERED: Dextrose 5% in Water 1,000 ML IV PRN (19:28)
[2019-05-07] MEDS ORDERED: Dextrose 50% Abboject 50 ML SYRINGE SLOW IVP PRN (19:28)
[2019-05-08] MEDS: Sodium Chloride 0.9% 1,000 ML IV SCH ×2 (00:01→15:08)
--- NOTE | 2019-05-08 00:06 | PDOC.HOSPP ---
- Subjective Encounter Date: 05/07/19 Encounter Time: 18:00 Subjective: Consult for medical management for intermittent episodes of hypoglycemia. Patient reports she was diagnosed with "reactive hypoglycemia" approximately 4 years ago. She reports when she is under stress her pancreas produces more insulin than required after eating a meal. Reports her blood sugar will spike and then drop below 60. She states she has learned to sip on a soft drink and her blood sugar will correct itself. She reports she has had seizures relating to her hypoglycemia but has never dropped low enough to become unconscious or unresponsive. She reports she is not eating like she would at home. States she typically grazes and eats small amounts of protein all day. This helps keep her BS under tighter control. Hospitalists were consulted to manage blood sugar. - Objective Vital Signs & Weight: Vital Signs (12 hours) Temp Pulse Resp BP Pulse Ox 05/07/19 23:24 98.1 F 80 16 102/63 95 05/07/19 15:18 98.3 F 98 18 112/69 97 Weight Weight 83.9 kg I&O: 05/06/19 05/07/19 05/08/19 06:59 06:59 06:59 Intake Total 100 3780 474 Output Total 1655 Balance -1555 3780 474 Result Diagrams: 05/02/19 21:31 05/02/19 20:50 Additional Labs: Accuchecks 05/07/19 05/07/19 10:24 09:35 POC Glucose 82 68 L Hospitalist ROS - Review of Systems Constitutional: denies: fever, chills, sweats, weakness, malaise, other Eyes: denies: pain, vision change, conjunctivae inflammation, eyelid inflammation, redness, other ENT: denies: ear pain, ear discharge, nose pain, nose discharge, nose congestion , mouth pain, mouth swelling, throat pain, throat swelling, other Respiratory: denies: cough, dry, shortness of breath, hemoptysis, SOB with excertion, pleuritic pain, sputum, wheezing, other Cardiovascular: denies: chest pain, palpitations, orthopnea, paroxysmal noc. dyspnea, edema, light headedness, other Gastrointestinal: denies: nausea, vomiting, abdominal pain, diarrhea, constipation, melena, hematochezia, other Genitourinary: denies: dysuria, frequency, incontinence, hematuria, retention, other Musculoskeletal: reports: back pain (related to recent lumbar surgery) Skin: denies: rash, lesions, emigdio, bruising, other Neurological: reports: weakness, numbness (reports left leg is still numb, reports legs are weak but improving) - Medication Medications: Active Medications Generic Name Dose Route Start Last Admin Trade Name Freq PRN Reason Stop Dose Admin Hydrocodone Bitart/Acetaminophen 2 tab 05/04/19 18:54 05/07/19 21:00 Clarion 10/325 PO 2 tab Q4H PRN Administration Pain Scale 6-8 Clonazepam 0.5 mg 05/04/19 21:00 05/07/19 20:55 Klonopin PO 0.5 mg TID HUEY Administration Duloxetine HCl 120 mg 05/05/19 09:00 05/07/19 08:51 Cymbalta PO 120 mg DAILY HUEY Administration Sodium Chloride 1,000 mls @ 75 mls/hr 05/03/19 00:45 05/07/19 09:03 Normal Saline 0.9% IV Not Given .[id number] HUEY Magnesium Hydroxide 30 ml 05/03/19 00:34 05/07/19 08:51 Milk Of Magnesium PO 30 ml Q12H PRN Administration Constipation Morphine Sulfate 2 mg 05/03/19 00:34 05/06/19 16:28 Morphine SLOW IVP 2 mg Q1H PRN Administration Moderate Breakthrough Pain Morphine Sulfate 4 mg 05/03/19 00:34 05/07/19 23:20 Morphine SLOW IVP 4 mg Q1H PRN Administration Severe Breakthrough Pain Ondansetron HCl 4 mg 05/03/19 04:16 05/07/19 12:31 Zofran IVP 4 mg DAILYPRN PRN Administration Nausea Pantoprazole Sodium 40 mg 05/03/19 09:00 05/07/19 08:52 Protonix PO 40 mg DAILY HUEY Administration Pregabalin 50 mg 05/03/19 09:00 05/07/19 20:55 Lyrica PO 50 mg TID HUEY Administration Promethazine HCl 12.5 mg 05/03/19 00:34 05/03/19 06:14 Phenergan IM 12.5 mg Q4H PRN Administration Nausea/Vomiting Sodium Chloride 10 ml 05/03/19 00:34 05/07/19 18:08 Flush - Normal Saline IVF 10 ml PRN PRN Administration Saline Flush Tizanidine HCl 4 mg 05/03/19 00:34 05/07/19 23:20 Zanaflex PO 4 mg Q6H PRN Administration Muscle Spasm - Exam Eye: PERRL ENT: moist mucosa Neck: supple, no JVD Heart: RRR Respiratory: CTAB Gastrointestinal: soft Extremities: no edema Skin: normal turgor Neurological: cranial nerve grossly intact Musculoskeletal - other findings: left leg with decreased sensation, ROM to BLE limited due to pain Psychiatric: normal affect Hosp A/P (1) Lumbar back pain Code(s): M54.5 - LOW BACK PAIN Status: Acute (2) Hypoglycemia Code(s): E16.2 - HYPOGLYCEMIA, UNSPECIFIED Status: Chronic (3) Lupus (systemic lupus erythematosus) Code(s): M32.9 - SYSTEMIC LUPUS ERYTHEMATOSUS, UNSPECIFIED Status: Chronic - Plan old records reviewed/req Will check blood sugar ACHS, diet changed to high protein, encouraged patient to eat frequent smaller meals, and protein snacks in between meals. Will continue to monitor. Case discussed with Dr. Mcgowan who agreed with plan. Thank you for the consultation.
[2019-05-08] MEDS: HYDROcodone/Acetaminophen 10/325 mg Tablet PO PRN ×4 (02:21→16:20)
[2019-05-08] MEDS: Morphine 4 MG/ML VIAL SLOW IVP PRN ×4 (05:41→18:40)
[2019-05-08] MEDS: Ondansetron PF 4 MG/2 ML Vial IVP PRN (05:41)
[2019-05-08] MEDS: DULoxetine 60 MG CAP PO SCH (07:45)
[2019-05-08] MEDS: clonazePAM 0.5 MG TAB PO SCH ×2 (07:45→14:18)
[2019-05-08] MEDS: Pregabalin 50 MG CAP PO SCH ×2 (07:49→14:18)
--- NOTE | 2019-05-08 09:19 | PRG ---
DATE OF SERVICE: 05/08/2019 Ms. Fosetr is continuing to work with our inpatient physical therapy group. She will need rehabilitation after this cauda equina/conus medullaris injury. Her vitals have been stable. She still has some weaknesses - L4, L5, and S1 innervated muscles on the left side. She has numbness in the same distribution. She is controlling her bowel and bladder, but has some residual decreased sensation in her sacral dermatomes. Once Ms. Foster has an inpatient rehabilitation bed, she can move there. Job ID: [id number]
[2019-05-08] MEDS ORDERED: Docusate Sodium 100 MG/10 ML UDCUP PO PRN (11:30)
[2019-05-08 13:03] LABS: Hemoglobin 8.5 g/dL (12.0-16.0)
[2019-05-08 18:58] VITALS: BP 113/74; TEMP 98.6
== END 2019-05-08 19:39 | DRG 496 ==
LOC: ERS 20:33 → SJJU 05-03 00:34
PROVIDERS: ADMIT Neurological Surgery; ATTEND Neurological Surgery
PROC: 0QH004Z Insertion of Internal Fixation Device into Lumbar Vertebra, Open Approach (ICD-10-PCS; principal; 2019-05-03)
PROC: 0QP004Z Removal of Internal Fixation Device from Lumbar Vertebra, Open Approach (ICD-10-PCS; 2019-05-03)
PROC: 0PH404Z Insertion of Internal Fixation Device into Thoracic Vertebra, Open Approach (ICD-10-PCS; 2019-05-03)
PROC: 0PP404Z Removal of Internal Fixation Device from Thoracic Vertebra, Open Approach (ICD-10-PCS; 2019-05-03)
PROC: 01NB0ZZ Release Lumbar Nerve, Open Approach (ICD-10-PCS; 2019-05-03)
PROC: 01N80ZZ Release Thoracic Nerve, Open Approach (ICD-10-PCS; 2019-05-03)
DX: M48.061 Spinal stenosis, lumbar region without neurogenic claudication (principal); G83.4 Cauda equina syndrome; G81.94 Hemiplegia, unspecified affecting left nondominant side; M32.9 Systemic lupus erythematosus, unspecified; G40.909 Epilepsy, unspecified, not intractable, without status epilepticus; E16.2 Hypoglycemia, unspecified; Z79.899 Other long term (current) drug therapy; Z88.8 Allergy status to other drugs, medicaments and biological substances; Z90.49 Acquired absence of other specified parts of digestive tract; S32.012D Unstable burst fracture of first lumbar vertebra, subsequent encounter for fracture with routine healing; V89.2XXD Person injured in unspecified motor-vehicle accident, traffic, subsequent encounter; Z98.0 Intestinal bypass and anastomosis status
CPT/HCPCS: 36415; 36416; 36430; 72146; 72148; 76000; 80053; 85014; 85018; 85025; 85610; 85730; 86850; 86900; 86901; 93970; 96374; 96375; 96376; J0670; J1100; J1170; J1956; J2001; J2250; J2270; J2370; J2405; J2550; J2704; J3010; J3370; J3490; J8540; P9016

== ENCOUNTER 2019-05-30 22:04 | Emergency (ER) | payer OTHER ==
[2019-05-30 23:02] LABS: #Lymphocytes 1.3 thou/uL (1.20-3.40); #Monocytes 0.3 thou/uL (0.11-0.59); #Neutrophils 2.2 thou/uL (1.40-6.50); %Basophils 0.4 % (0.0-1.0); %Eosinophils 1.2 % (0.0-10.0); %Lymphocytes 33.9 % (21.0-51.0); %Monocytes 6.9 % (0.0-10.0); %Neutrophils 57.6 % (42.0-75.0); Hemoglobin 9.8 g/dL (12.0-16.0); Mean Corpuscular HGB CONC 31.1 g/dL (32.0-36.0); Mean Corpuscular Hemoglobin 26.9 pg (27.0-31.0); Mean Corpuscular Volume 86.4 fL (78.0-98.0); Mean Platelet Volume 7.4 fL (7.4-10.4); Platelet Count 225 thou/uL (130-400); Red Blood Cell (RBC) Count 3.64 mill/uL (4.20-5.40); White Blood Cell (WBC) Count 3.7 thou/uL (4.8-10.8)
[2019-05-30 23:21] LABS: ALT (SGPT) 23 U/L (8-55); AST (SGOT) 28 U/L (5-34); Albumin 3.8 g/dL (3.5-5.0); Alkaline Phosphatase 149 U/L (40-110); Anion Gap 12 mmol/L (10-20); BUN (Urea Nitrogen) 12 mg/dL (7.0-18.7); Bilirubin, Total 0.3 mg/dL (0.2-1.2); Calc. Creatinine Clearance 0 mL/min (70-130); Calcium 9.2 mg/dL (7.8-10.44); Carbon Dioxide 23 mmol/L (22-29); Chloride 107 mmol/L (98-107); Estimated GFR-MDRD 88; Globulin 2.5 g/dL (2.4-3.5); Glucose 101 mg/dL (70-105); Potassium 3.7 mmol/L (3.5-5.1); Protein, Total 6.3 g/dL (6.0-8.3); Sodium 138 mmol/L (136-145)
[2019-05-30] MEDS ORDERED: Morphine 4 MG/ML VIAL ONE (23:54)
[2019-05-30] MEDS ORDERED: Dexamethasone 10 MG/ML VIAL ONE (23:54)
[2019-05-30] MEDS ORDERED: Ondansetron PF 4 MG/2 ML Vial ONE (23:54)
[2019-05-31] MEDS ORDERED: Morphine 4 MG/ML VIAL ONE (02:24)
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
== END 2019-05-31 03:18 | disposition home or self-care (01) ==
LOC: ERS 22:04
DX: M54.5 Low back pain (principal); F41.9 Anxiety disorder, unspecified; F32.9 Major depressive disorder, single episode, unspecified; Z79.899 Other long term (current) drug therapy
CPT/HCPCS: 72148; 80053; 85025; 85652; 86140; 96374; 96375; 96376; J1100; J2270; J2405

== ENCOUNTER 2019-06-01 14:52 | Inpatient (IN) | payer OTHER ==
[2019-06-01] MEDS ORDERED: HYDROcodone/Acetaminophen 5/325 mg Tablet ONE (15:17)
[2019-06-01] MEDS ORDERED: diphenhydrAMINE 50 MG/ML VIAL IVP PRN (16:45)
[2019-06-01] MEDS ORDERED: Milk Of Magnesia 30 ML UDCUP PO PRN (16:45)
[2019-06-01] MEDS ORDERED: Ondansetron PF 4 MG/2 ML Vial IVP PRN (16:45)
[2019-06-01] MEDS ORDERED: Promethazine HCl 25 MG/ML VIAL IM PRN (16:45)
[2019-06-01] MEDS ORDERED: HYDROcodone/Acetaminophen 10/325 mg Tablet PO PRN (16:45)
[2019-06-01] MEDS ORDERED: Acetaminophen 325 MG TAB PO PRN (16:45)
[2019-06-01] MEDS ORDERED: Mag-Al 1200 mg/1200 mg/30 ML UDCUP PO PRN (16:45)
[2019-06-01 18:10] LABS: #Lymphocytes 2.2 thou/uL (1.20-3.40); #Monocytes 0.3 thou/uL (0.11-0.59); %Basophils 0.5 % (0.0-1.0); %Eosinophils 0.7 % (0.0-10.0); %Lymphocytes 48.1 % (21.0-51.0); %Monocytes 6.9 % (0.0-10.0); %Neutrophils 43.7 % (42.0-75.0); Hemoglobin 10.5 g/dL (12.0-16.0); Mean Corpuscular HGB CONC 31.6 g/dL (32.0-36.0); Mean Corpuscular Hemoglobin 27.5 pg (27.0-31.0); Mean Corpuscular Volume 86.8 fL (78.0-98.0); Mean Platelet Volume 7.3 fL (7.4-10.4); Platelet Count 210 thou/uL (130-400); RBC Distribution Width 14.1 % (11.5-14.5); Red Blood Cell (RBC) Count 3.81 mill/uL (4.20-5.40); White Blood Cell (WBC) Count 4.6 thou/uL (4.8-10.8)
[2019-06-01] MEDS ORDERED: Morphine 4 MG/ML VIAL ONE ×2 (18:13→19:52)
[2019-06-01] MEDS ORDERED: Dexamethasone 4 mg/ml Vial ONE (18:15)
[2019-06-01 18:19] LABS: INR-International Normal Ratio 1.1; PTT 28.3 SEC (22.9-36.1); Prothrombin Time 13.8 SEC (12.0-14.7)
[2019-06-01 18:28] LABS: Anion Gap 11 mmol/L (10-20); BUN (Urea Nitrogen) 11 mg/dL (7.0-18.7); CRP (Inflammatory) Less than 0.50 mg/dL (= or < 0.5); Calc. Creatinine Clearance 0 mL/min (70-130); Calcium 8.9 mg/dL (7.8-10.44); Carbon Dioxide 22 mmol/L (22-29); Chloride 110 mmol/L (98-107); Estimated GFR-MDRD 86; Glucose 79 mg/dL (70-105); Potassium 3.6 mmol/L (3.5-5.1); Sodium 139 mmol/L (136-145)
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
--- NOTE | 2019-06-01 19:56 | MRI ---
MRI LUMBAR SPINE WITH AND WITHOUT CONTRAST: DATE: 06/01/2019 HISTORY: 39-year-old female presents with worsening of low back pain and concern for cauda equina syndrome. COMPARISON: 05/31/2019 noncontrast MRI TECHNIQUE: Multiple sequences obtained in axial and sagittal planes, pre and post IV injection of gadolinium-bas ed contrast agent. FINDINGS: There are 5 lumbar-type vertebrae. Bilateral pedicle screws with vertical interlocking rods at, at T1 1, T12, L2, and L3. Cauda equina is arranged in a symmetrical, normal distribution throughout the thecal sac without abnormal enhancement. T12-L1:Burst fracture of L1 with bony retropulsion. 50% decrease in AP dimension of spinal canal on 1 due to the retropulsion, was improved with midline laminectomy on 06/01/2019. Currently the degree of central spinal canal stenosis is mild. Recently postoperative right intraspinal midline fluid collection extending from upper T12 level to L1-2 level. Axial images are degraded because of magnetic susceptibility artifact from the metallic hardware. Conus medullaris terminates at this l evel. Diffuse bone marrow edema involving the entire L1 fractured vertebral body. Degree of enhancement of L1 vertebral body is similar to that of all other vertebral bodies. L1-2: Midline laminectomy defect results in generous caliber of spinal canal and thecal sac. L2-3:Normal L3-4:Mild disc space narrowing, disc desiccation, and small shallow central and bilateral paracentral central disc protrusion with annular fissure. Mild central stenosis. No right neural foraminal stenosis. Mild left neural foraminal stenosis. Mild left lateral recess stenosis. L4-5:Normal L5-S1:Normal There is bilateral enhancement of the posterior paraspinal musculature throughout all levels of the l umbar spine. In the upper and mid levels, this is due to recent postsurgical changes. At lower levels, this could represent muscle strain. There is enhancement of subcutaneous dorsal fat. Enhancem ent around the retrospinal fluid collection. No interval change in the noncontrast portions of the MRI compared to yesterday. No epidural abscess or hematoma. IMPRESSION: 1) recent, subacute traumatic burst fracture of L1 with bony retropulsion. This is stabilized by pedi brittney screws 2 levels superior and 2 levels inferior to this. 2) no major pathology identified of cauda equina. 3) status post midline laminectomies at T12-L1 and L1-2. 4) mild central spinal canal stenosis at L1. 5) postoperative retrospinal fluid collection from upper V35-U1-1 levels. At this stage, it is genera lly not possible to distinguish normal, expected postoperative seroma/hematoma from pseudomeningocele and abscess. 6) no interval change detected on the noncontrast portions of the MRI compared to yesterday.
[2019-06-01 21:10] VITALS: BMI 34.2
[2019-06-01] MEDS: Sodium Chloride 0.9% 1,000 ML IV SCH (21:30)
[2019-06-01] MEDS: Dexamethasone 4 mg/ml Vial SLOW IVP SCH (21:31)
[2019-06-01] MEDS: HYDROcodone/Acetaminophen 10/325 mg Tablet PO PRN (22:13)
[2019-06-01] MEDS: tiZANidine HCl 4 MG TAB PO PRN (22:14)
[2019-06-02] MEDS: Morphine 2 MG/ML SYRINGE SLOW IVP PRN ×9 (00:06→18:28)
[2019-06-02] MEDS: Dexamethasone 4 mg/ml Vial SLOW IVP SCH ×5 (00:06→23:39)
[2019-06-02] MEDS: tiZANidine HCl 4 MG TAB PO PRN ×2 (05:45→16:50)
[2019-06-02] MEDS: Sodium Chloride 0.9% 1,000 ML IV SCH ×2 (08:52→23:39)
[2019-06-02] MEDS: HYDROcodone/Acetaminophen 10/325 mg Tablet PO PRN ×2 (10:57→16:09)
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
[2019-06-02] MEDS ORDERED: Iopamidol-370 76% 500 ML 1 ML ONE (13:41)
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
[2019-06-02] MEDS ORDERED: diphenhydrAMINE 50 MG/ML VIAL IVP PRN (18:46)
[2019-06-02] MEDS ORDERED: diphenhydrAMINE 25 MG CAP PO PRN (18:46)
[2019-06-02] MEDS ORDERED: Naloxone HCl 0.4 mg/ml Vial IV PRN (18:46)
[2019-06-02] MEDS ORDERED: Promethazine HCl 25 MG/ML VIAL IM PRN (18:46)
[2019-06-02] MEDS ORDERED: diphenhydrAMINE 50 MG/ML VIAL IM PRN (18:46)
[2019-06-02] MEDS ORDERED: Communication Order-Pharmacy FS SCH (19:00)
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
--- NOTE | 2019-06-02 19:04 | CT ---
CT lumbar spine noncontrast: DATE: 06/02/2019 HISTORY: 39-year-old female with sudden onset hypesthesia and dysesthesia at level of umbilicus and all levels inferior to that in the body. FINDINGS: Burst fracture of L1 with significant bony retropulsion into the spinal canal. Decompressive laminect omies. Pedicle screws at 2 levels superior and 2 levels inferior to that. No malpositioning of hardware. No hardware loosening. The rest of the vertebral body heights are maintained. No additional findings on this CT that were not described already on MRI of lumbar spine of 06/01/2019. IMPRESSION: 1. Late subacute burst fracture of L1 and postsurgical changes treating it. 2. No interval change and no additional information since MRI of 06/01/2019.
--- NOTE | 2019-06-02 19:07 | PRG ---
DATE OF SERVICE: 06/02/2019 TIME: 6:15 p.m. SUBJECTIVE: Ms. Foster complained of increasing weakness in the legs over the course of the day. She is currently in the MRI scanner. We have ordered MRIs of the cervical and thoracic spine, CT of the thoracic and lumbar spine, and a CT angiogram of the aorta. She has previously had a thoracic MRI scan that was unremarkable. We reviewed this as well as the cervical. I was able to glance at the initial images from these tests and they appeared to be unremarkable with no compressive etiology or anything to explain the patient's progressive symptoms. We will await the full imaging and the radiologist's impression as well. With a CT scan, we will be looking for any evidence of hardware failure or any other compressive or noncompressive etiology. With a CT angiogram of the aorta, we are looking for aortic compromise that could explain a vascular source of the patient's progressive symptoms. I visited with the patient's mother to reassure her. She did express that the patient had had a number of recent stressors. Job ID: [id number]
[2019-06-02] MEDS: HYDROmorphone 10 mg/100 ml CADD IVPB PRN (19:49)
--- NOTE | 2019-06-02 19:55 | CT ---
CT ANGIOGRAM ABDOMEN WITH CONTRAST CT ANGIOGRAM PELVIS WITH CONTRAST CT ANGIOGRAM BILATERAL LOWER EXTREMITIES WITH CONTRAST: (Computed tomographic angiography, abdominal aorta and bilateral iliofemoral lower extremity runoff, with contrast material, and imaging postprocessing) HISTORY: 39-year-old female with sudden onset of hypesthesia and dysesthesia of lower body from umbilicus to a ll levels inferior to that. TECHNIQUE: IV injection of iodinated contrast. Arterial bolus chasing technique. Scan acquisition from top of abdominal aorta to bilateral ankles. 3-D MIP reconstructions. FINDINGS: Abdominal aorta, bilateral renal arteries (double left renal arteries, accessory lower pole renal art jose r on the left), celiac artery, superior mesenteric artery, common iliac arteries, internal iliac arteries, external iliac arteries, common femoral arteries, superficial femoral arteries, profunda fe moral arteries, popliteal arteries, and tibioperoneal trunks, are normal, with no dissection, significant atherosclerotic plaque, stenosis, or aneurysm. Blood flow in bilateral anterior tibial, posterior tibial, and peroneal arteries, with three-vessel r unoff to the bilateral feet. Status post bariatric surgery. No hydronephrosis. No small bowel dilation. No ascites or pneumoperitoneum. Constipation. L1 burst fracture and postsurgical changes. No hepatosplenomegaly. Normal pancreas and adrenals. IMPRESSION: Normal abdominal aorta and all of its branches, including arteries of bilateral lower extremities
[2019-06-02] MEDS: Pregabalin 75 MG CAP PO SCH (21:06)
[2019-06-03] MEDS: Dexamethasone 4 mg/ml Vial SLOW IVP SCH ×4 (06:55→22:54)
[2019-06-03] MEDS: Pregabalin 75 MG CAP PO SCH ×2 (07:45→21:16)
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
[2019-06-03] MEDS: HYDROmorphone 10 mg/100 ml CADD IVPB PRN ×2 (08:40→18:04)
--- NOTE | 2019-06-03 08:57 | PRG ---
DATE OF SERVICE: The patient was seen and examined. She does have reprogression of lower extremity weakness, left greater than right. There is also progression of sensory dysfunction in the legs. MRI of the cervical and thoracic spines last night was largely unremarkable. Similarly, CT scan of the thoracic and lumbar spines did not show any etiology or any specific problems to explain the syndrome. Finally, we checked a CTA of the aorta to exclude aortic injury and possibly a vascular phenomenon affecting the conus and this was normal as well. I think the most likely conclusion is that this represents inflammation and/or edema at the level of the conus, which we will treat with Decadron and time. I explained this to the patient. She expressed her understanding. All questions were answered. We will also get a Neurology consult for any additional input they might have. Job ID: [id number]
[2019-06-03] MEDS: Sodium Chloride 0.9% 1,000 ML IV SCH (12:21)
[2019-06-03] MEDS: OCTAGAM 10% 60 GM, OCTAGAM 10% 5 GM in Admixture Fee 1 EACH IVPB SCH (17:10)
[2019-06-03] MEDS: Zolpidem Tartrate 5 MG TAB PO PRN (22:54)
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
[2019-06-04] MEDS: Sodium Chloride 0.9% 1,000 ML IV SCH ×3 (02:12→20:30)
[2019-06-04] MEDS: HYDROmorphone 10 mg/100 ml CADD IVPB PRN ×2 (05:15→16:20)
[2019-06-04] MEDS: Dexamethasone 4 mg/ml Vial SLOW IVP SCH ×3 (05:28→17:19)
[2019-06-04] MEDS: Pregabalin 75 MG CAP PO SCH ×2 (08:38→20:31)
[2019-06-04] MEDS ORDERED: Diltiazem 125 MG in Sodium Chloride 0.9% 100 ML IVPB SCH (12:58)
[2019-06-04 13:58] LABS: Complement-C4 10.4 mg/dL (15-57)
[2019-06-04 14:08] LABS: INR-International Normal Ratio 1.1; PTT 26.9 SEC (22.9-36.1); Prothrombin Time 13.7 SEC (12.0-14.7)
[2019-06-04 14:17] LABS: Free T4 (Free Thyroxine) 0.68 ng/dL (0.70-1.48); Thyroid Stimulating Hormone 0.1351 uIU/mL (0.35-4.94)
[2019-06-04] MEDS: clonazePAM 0.5 MG TAB PO SCH ×2 (14:54→20:31)
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
--- NOTE | 2019-06-04 15:28 | PRG ---
DATE OF SERVICE: 06/04/2019 SUBJECTIVE: Ms. Foster this morning is resting comfortably. She unfortunately still has limited mobility of the bilateral lower extremities. Wiggling just the ends of her right toes. She still is numb to sensation throughout the full distribution of bilateral lower extremities and reports some early weakness in the left upper extremity. PLAN: Dr. Mojica saw her yesterday afternoon and diagnosed her with Guillain-[place] and started her on IVIG. I will hope that in the coming days, she starts to improve. Until that time, we will continue to follow along. Job ID: [id number]
[2019-06-04] MEDS ORDERED: OCTAGAM 10% 60 GM, OCTAGAM 10% 5 GM in Admixture Fee 1 EACH IVPB SCH (15:30)
[2019-06-04] MEDS ORDERED: Flecainide 50 MG TAB PO SCH (16:30)
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
[2019-06-04] MEDS: OCTAGAM 10% 60 GM, OCTAGAM 10% 5 GM in Admixture Fee 1 EACH IVPB SCH (17:00)
[2019-06-04] MEDS: Ondansetron PF 4 MG/2 ML Vial IVP PRN (17:28)
[2019-06-04 17:35] LABS: Troponin I 0.025 ng/mL (< 0.028)
[2019-06-04 20:11] LABS: Troponin I 0.038 ng/mL (< 0.028)
[2019-06-04] MEDS: Enoxaparin Sodium 30 MG/0.3 ML SYRINGE SC SCH (20:32)
[2019-06-04] MEDS: Zolpidem Tartrate 5 MG TAB PO PRN (22:44)
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
--- NOTE | 2019-06-05 00:08 | CON ---
DATE OF CONSULTATION: 06/04/2019 Ms. Foster went into atrial fibrillation with rapid ventricular response. She just converted to sinus rhythm this evening. She received her first dose of Gamma-Globulin yesterday. She is about to receive her second dose this evening. She has not seen any appreciable change. On exam, her upper extremity strength remains stable. She still has weakness in both deltoids. She has only trace movement in both lower extremities. Sensory is still impaired. She has otherwise had no new symptoms developed at this point. She will receive her second dose of Gamma-Globulin. I will continue to follow in her care. Continue DVT prophylaxis. Job ID: [id number]
[2019-06-05] MEDS: Dexamethasone 4 mg/ml Vial SLOW IVP SCH ×3 (01:28→18:00)
[2019-06-05] MEDS ORDERED: Dexamethasone 4 mg/ml Vial ONE (05:46)
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
[2019-06-05] MEDS: DULoxetine 60 MG CAP PO SCH (14:35)
[2019-06-05] MEDS: clonazePAM 0.5 MG TAB PO SCH ×3 (14:35→20:30)
[2019-06-05] MEDS: Enoxaparin Sodium 30 MG/0.3 ML SYRINGE SC SCH ×2 (14:35→20:31)
[2019-06-05] MEDS: Pregabalin 75 MG CAP PO SCH ×2 (14:36→20:30)
[2019-06-05 18:36] LABS: White Blood Cell (WBC) Count 4.5 thou/uL (4.8-10.8)
[2019-06-05 18:37] LABS: Hemoglobin 9.4 g/dL (12.0-16.0); Mean Corpuscular HGB CONC 31.8 g/dL (32.0-36.0); Mean Corpuscular Hemoglobin 27.8 pg (27.0-31.0); Mean Corpuscular Volume 87.7 fL (78.0-98.0); Platelet Count 145 thou/uL (130-400); RBC Distribution Width 13.8 % (11.5-14.5); Red Blood Cell (RBC) Count 3.36 mill/uL (4.20-5.40)
[2019-06-05 18:38] LABS: Mean Platelet Volume 9.4 fL (7.4-10.4)
[2019-06-05 18:39] LABS: #Lymphocytes 0.6 thou/uL (1.20-3.40); #Monocytes 0.3 thou/uL (0.11-0.59); #Neutrophils 3.6 thou/uL (1.40-6.50); %Eosinophils 0.7 % (0.0-10.0); %Lymphocytes 12.5 % (21.0-51.0); %Monocytes 6.9 % (0.0-10.0); %Neutrophils 79.9 % (42.0-75.0)
[2019-06-05 18:54] LABS: ALT (SGPT) 79 U/L (8-55); AST (SGOT) 64 U/L (5-34); Albumin 2.7 g/dL (3.5-5.0); Alkaline Phosphatase 83 U/L (40-110); Anion Gap 9 mmol/L (10-20); BUN (Urea Nitrogen) 10 mg/dL (7.0-18.7); Bilirubin, Total 0.2 mg/dL (0.2-1.2); Calc. Creatinine Clearance 159 mL/min (70-130); Calcium 8.2 mg/dL (7.8-10.44); Carbon Dioxide 25 mmol/L (22-29); Chloride 103 mmol/L (98-107); Estimated GFR-MDRD Greater than 90; Globulin 4.2 g/dL (2.4-3.5); Glucose 101 mg/dL (70-105); Potassium 4.1 mmol/L (3.5-5.1); Protein, Total 6.9 g/dL (6.0-8.3); Sodium 133 mmol/L (136-145)
--- NOTE | 2019-06-05 19:19 | PRG ---
DATE OF SERVICE: 06/05/2019 Ms. Foster is in the stroke unit recovering from recent admission for progressive lower extremity neurologic dysfunction. She underwent extensive imaging, which failed to reveal any compressive lesion or any underlying need for surgical intervention. She has been evaluated by Neurology and they believe that she may be experiencing Guillain-[place], for which she has already started treatment. I questioned her in the room today and she is resting comfortably and reports no pain. She does report inability to move her lower extremities and a progression of numbness and weakness in a cephalad direction. She does feel, however, since she has had 2 immunoglobulin treatments that some of the altered sensation that she was having in her tongue and her face and some of the heaviness that she reported in her chest on prior days has diminished. From a neurosurgical perspective, there is no need for intervention. We will continue to follow along closely and work toward disposition planning, which will likely be rehab versus snf facility. We will also await further word from Neurology and what additional treatments may be needed. Job ID: [id number]
[2019-06-05] MEDS: HYDROmorphone 10 mg/100 ml CADD IVPB PRN (20:58)
[2019-06-06] MEDS: Zolpidem Tartrate 5 MG TAB PO PRN (01:56)
[2019-06-06] MEDS: Sodium Chloride 0.9% 1,000 ML IV SCH ×2 (01:56→12:22)
[2019-06-06] MEDS: Dexamethasone 4 mg/ml Vial SLOW IVP SCH ×4 (01:56→17:25)
[2019-06-06] MEDS: Pregabalin 75 MG CAP PO SCH ×2 (08:03→21:36)
[2019-06-06] MEDS: DULoxetine 60 MG CAP PO SCH (08:03)
[2019-06-06] MEDS: clonazePAM 0.5 MG TAB PO SCH ×3 (08:03→21:36)
[2019-06-06] MEDS: Enoxaparin Sodium 30 MG/0.3 ML SYRINGE SC SCH ×2 (08:04→21:35)
[2019-06-06] MEDS: HYDROmorphone 10 mg/100 ml CADD IVPB PRN ×2 (08:04→21:29)
--- NOTE | 2019-06-06 08:29 | PRG ---
DATE OF SERVICE: 06/06/2019 SUBJECTIVE: Ms. Foster is on the 5th day of her hospital stay for what appeared initially to be recurrent cauda equina symptoms, but then thought to be Guillain-[place]. The patient was started on IVIG 2 days ago. She has had two doses and two infusions at Dr. Mojica's direction. It appears that her neurologic state may be is roughly the same, although she admits that she has some increased sensation around her hips and maybe perineum, but peripherally in the lower extremities, she still reports being asensate and has minimal motor function, although according to PT's notes, it does appear she has some activation of her lower extremities in different myotomes, so either the IVIG is working or perhaps this has been a psychosocial issue the entire time. Nursing staff reports the patient is using her Dilaudid IMITATION MARBLE MECHANIC essentially every time it is available. I discussed with her at bedside that if that is what she is doing, we may need to switch her to a better longer-acting medication and take her off the pump. She seems skittish and concerned about removing that particular medication which I feel is perhaps indicative of some underlying again social concern. She does not be appear at any time to be in significant discomfort and speaks to me slightly and calmly the entire time. It is under my impression that we will again reach out to rehab for readmission and continue work there, but before doing so again, we certainly need to be off any type of high-level narcotics, so my plan today will be to discuss with Dr. Olmos dropping the IMITATION MARBLE MECHANIC in favor of oral medications. At which point, we will then reassess her pain level throughout the day. Job ID: [id number]
--- NOTE | 2019-06-06 08:45 | PDOC.HOSPP ---
- Subjective Encounter Date: 06/06/19 Encounter Time: 07:45 Subjective: Ms. 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 Her lower extremity weakness is the same and has not improved. Still no motor function in the lower extremity, except her hips. She also has mild right sided upper extremity weakness. She mentioned that 2 days ago, she had parathesia in her arms and mouth area as well that is now improving. She has diffuse, poorly localized back pain around her entire back that is rated at an 8/10, no radiation. She feels weak and fatigued and says her breathing is somewhat labored. Her appetite is poor and she reports mild nausea. No other concerns at this time. - Objective Vital Signs & Weight: Vital Signs (12 hours) Temp Pulse Resp BP Pulse Ox 06/06/19 07:22 99.4 F 52 L 15 130/85 98 06/06/19 03:00 98.2 F 70 16 127/78 92 L 06/06/19 00:00 97.9 F 74 16 119/78 93 L Weight Weight 87.589 kg Most Recent Monitor Data Heart Rate from ECG 58 NIBP 94/56 NIBP BP-Mean 68 Respiration from ECG 10 SpO2 94 I&O: 06/05/19 06/06/19 06/07/19 06:59 06:59 06:59 Intake Total 890 1150 Output Total 600 1750 Balance 290 -600 Result Diagrams: 06/05/19 05:05 06/05/19 04:45 Hospitalist ROS - Review of Systems Constitutional: reports: weakness. denies: fever, chills, sweats Respiratory: denies: cough, shortness of breath Cardiovascular: reports: other (chest heaviness). denies: chest pain Gastrointestinal: reports: nausea. denies: vomiting, abdominal pain, diarrhea Genitourinary: denies: dysuria Musculoskeletal: reports: back pain Skin: denies: rash Neurological: reports: weakness, numbness - Medication Medications: Active Medications Generic Name Dose Route Start Last Admin Trade Name Freq PRN Reason Stop Dose Admin Clonazepam 0.5 mg 06/04/19 15:00 06/06/19 08:03 Klonopin PO 0.5 mg TID HUEY Administration Dexamethasone 4 mg 06/01/19 18:00 06/06/19 06:18 Decadron SLOW IVP 4 mg Q6HR HUEY Administration Duloxetine HCl 120 mg 06/05/19 09:00 06/06/19 08:03 Cymbalta PO 120 mg DAILY HUEY Administration Enoxaparin Sodium 30 mg 06/04/19 21:00 06/06/19 08:04 Lovenox SC 30 mg Q12HR HUEY Administration Hydromorphone HCl 0 mg 06/02/19 18:46 06/06/19 08:04 Dilaudid Cadd IVPB 10 mg INF PRN Administration Pain Sodium Chloride 1,000 mls @ 75 mls/hr 06/01/19 16:45 06/06/19 01:56 Normal Saline 0.9% IV 1,000 mls .[id number] HUEY Administration Diltiazem HCl 125 mg/ Sodium 125 mls @ 5 mls/hr 06/04/19 12:58 06/04/19 14:57 Chloride IVPB 125 mls INF HUEY Administration Protocol 5 MG/HR Ondansetron HCl 4 mg 06/02/19 18:46 06/04/19 17:28 Zofran IVP 4 mg Q6H PRN Administration Nausea/Vomiting Pregabalin 75 mg 06/02/19 21:00 06/06/19 08:03 Lyrica PO 75 mg BID HUEY Administration Tizanidine HCl 4 mg 06/01/19 16:45 06/02/19 16:50 Zanaflex PO 4 mg Q6H PRN Administration Muscle Spasm Zolpidem Tartrate 5 mg 06/02/19 18:46 06/06/19 01:56 Ambien PO 5 mg HSPRN PRN Administration Insomnia - Exam General Appearance: NAD, awake alert (lathargic appearing) Eye: PERRL, anicteric sclera Eye - other findings: mild palpebral erythema Neck: supple, no thyromegaly Heart: RRR, no murmur Respiratory: CTAB, no wheezes, no rales, no ronchi Extremities: no cyanosis, no clubbing, no edema Skin: no lesions Neurological: cranial nerve grossly intact (mildly decreased left sided 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 Her neuro symptoms are slowly improving. -Afib: She had bradycardia and was taken off the cardizem. She is in sinus rhythm today with HR in the 60s. Echo results showed 50-55% LVEF with mild left atrial enlargement. Follow cardiology recommendations. -Lower extremity weakness: Continue IVIG as recommended. Other differentials include possible MS and conversion disorder. Will get brain MRI to r/o MS.
--- NOTE | 2019-06-06 11:22 | PDOC.CPN ---
- Subjective Date: 06/06/19 Time: :19 Interval history: EP PROGRESS NOTE: 06/06/19 Follow up for newly diagnosed AF with RVR. Remains in SR. No cardiac complaints today - Review of Systems General: denies: fever/chills, weight/appetite/sleep changes, night sweats, fatigue Respiratory: denies: cough, congestion, shortness of breath, exercise intolerance Cardiovascular: denies: chest pain, palpitation, edema, paroxysmal nocturnal dyspnea, orthopnea - Objective Allergies/Adverse Reactions: Allergies Allergy/AdvReac Type Severity Reaction Status Date / Time amoxicillin [From Augmentin] Allergy Hives Verified 03/26/19 15:55 clavulanic acid Allergy Hives Verified 03/26/19 15:55 [From Augmentin] Visit Medications: Current Medications Acetaminophen (Tylenol) 650 mg PO Q4H PRN PRN Reason: Headache/Fever or Pain Al Hydroxide/Mg Hydroxide (Maalox) 30 ml PO Q4H PRN PRN Reason: Indigestion Clonazepam (Klonopin) 0.5 mg PO TID [facility] Last Admin: 06/06/19 08:03 Dose: 0.5 mg Dexamethasone (Decadron) 4 mg SLOW IVP Q6HR [facility] Last Admin: 06/06/19 06:18 Dose: 4 mg Diphenhydramine HCl (Benadryl) 25 mg IVP Q3H PRN PRN Reason: Itching Diphenhydramine HCl (Benadryl) 25 mg PO Q3H PRN PRN Reason: Itching Diphenhydramine HCl (Benadryl) 25 mg IM Q3H PRN PRN Reason: Itching Duloxetine HCl (Cymbalta) 120 mg PO DAILY [facility] Last Admin: 06/06/19 08:03 Dose: 120 mg Enoxaparin Sodium (Lovenox) 30 mg SC Q12HR [facility] Last Admin: 06/06/19 08:04 Dose: 30 mg Hydromorphone HCl (Dilaudid Cadd) 0 mg IVPB INF PRN PRN Reason: Pain Last Admin: 06/06/19 08:04 Dose: 10 mg Sodium Chloride (Normal Saline 0.9%) 1,000 mls @ 75 mls/hr IV .[id number] [facility] Last Admin: 06/06/19 01:56 Dose: 1,000 mls Diltiazem HCl 125 mg/ Sodium (Chloride) 125 mls @ 5 mls/hr IVPB INF HUEY; Protocol Last Admin: 06/04/19 14:57 Dose: 125 mls Magnesium Hydroxide (Milk Of Magnesium) 30 ml PO Q12H PRN PRN Reason: Constipation Naloxone HCl (Narcan) 0.2 mg IV Q5MIN PRN PRN Reason: Opiate Reversal Ondansetron HCl (Zofran) 4 mg IVP Q6H PRN PRN Reason: Nausea/Vomiting Last Admin: 06/04/19 17:28 Dose: 4 mg Pregabalin (Lyrica) 75 mg PO BID HUEY Last Admin: 06/06/19 08:03 Dose: 75 mg Promethazine HCl (Phenergan) 12.5 mg IM Q4H PRN PRN Reason: Nausea/Vomiting Sodium Chloride (Flush - Normal Saline) 10 ml IVF PRN PRN PRN Reason: Saline Flush Tizanidine HCl (Zanaflex) 4 mg PO Q6H PRN PRN Reason: Muscle Spasm Last Admin: 06/02/19 16:50 Dose: 4 mg Zolpidem Tartrate (Ambien) 5 mg PO HSPRN PRN PRN Reason: Insomnia Last Admin: 06/06/19 01:56 Dose: 5 mg Vital Signs & Weight: Vital Signs Temp Pulse Resp BP Pulse Ox 06/06/19 08:00 94 L 06/06/19 07:22 99.4 F 52 L 15 130/85 98 06/06/19 03:00 98.2 F 70 16 127/78 92 L 06/06/19 00:00 97.9 F 74 16 119/78 93 L Weight 193 lb 1.6 oz - Physical Exam General: alert & oriented x3, appears well, no apparent distress HEENT: mucus membranes moist, normocephaly Neck: supple neck, midline trachea, no JVD/HJR, no masses, no bruit, no lymphadenopathy, no thromegaly Cardiac: regular rate and rhythm, no murmur, regular rate, regular rhythm - Labs Result Diagrams: 06/05/19 05:05 06/05/19 04:45 Troponin/CKMB Troponin I 0.038 ng/mL (< 0.028) H 06/04/19 19:47 - Telemetry Sinus rhythms and dysrhythmias: sinus rhythm - Assessment/Plan Assessment/Plan: 1. Atrial fibrillation -converted to SR with Flecainide 450mg. -CHADS2-VASC: 1 (female gender)- ASA 81mg daily is recommended for CVA prophylaxis 2. Preserved EF -50-55% -LV normal size ASA 81mg daily for CHADS2-VASC of 1. Recommend "pill in pocket" flecainide 50mg PO BID PRN for future palpitations.
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
[2019-06-06 11:51] LABS: DRVVT Confirm 35.8; DRVVT Ratio 0.9 Ratio (1.2 or Less)
[2019-06-06 11:53] LABS: Factor IX Test 123.7 % ACTIVE (56-149)
[2019-06-06 13:12] LABS: HEX PHOS LA Tube 1 52.4 SEC; HEX PHOS LA Tube 2 47.8 SEC; Hexagonal Phospholipid Neut 4.6 SEC (0-8.0)
[2019-06-06] MEDS: tiZANidine HCl 4 MG TAB PO PRN (13:25)
--- NOTE | 2019-06-06 14:44 | MRI ---
MRI BRAIN WITH AND WITHOUT IV CONTRAST: HISTORY: Bilateral leg weakness FINDINGS: No restricted diffusion is seen. No evidence of infarct, hemorrhage, mass, midline shift or abnormal extra-axial fluid collections is noted. No abnormal postcontrast enhancement is seen. The ventricular size is appropriate and the basilar cisterns are patent. The visualized paranasal sinuses and mastoid air cells are well aerated. IMPRESSION: Normal exam
[2019-06-06] MEDS ORDERED: Magnevist 469MG/ML 20 ML VIAL ONE (15:09)
[2019-06-06 15:21] LABS: Cardiolipin IgA Ab 1.6 APL-U/mL (<14 Negative); Cardiolipin IgG Ab 2.2 GPL-U/mL (<10 Negative); Cardiolipin IgM Ab Less than 0.8 MPL-U/mL (<10 Negative); EliA APS New Method **** NEW METHOD ****; beta-2-Glycoprotein I IgA Ab 0.9 U/mL (<7 Negative); beta-2-Glycoprotein I IgG Ab 1.8 U/mL (<7 Negative); beta-2-Glycoprotein I IgM Abs Less than 2.9 U/mL (<7 Negative); dsDNA IgG Antibody 2.6 IU/mL (<10 Negative)
--- NOTE | 2019-06-06 21:23 | EKG ---
Test Reason : Blood Pressure : / mmHG Vent. Rate : 160 BPM Atrial Rate : 153 BPM P-R Int : 000 ms QRS Dur : 094 ms QT Int : 300 ms P-R-T Axes : 000 054 263 degrees QTc Int : 489 ms Atrial fibrillation with rapid ventricular response Abnormal ECG When compared with ECG of 09-MAR-2014 20:55, Atrial fibrillation has replaced Sinus rhythm Vent. rate has increased BY [address] now depressed in Inferior leads ST now depressed in Anterolateral leads T wave inversion now evident in Inferior leads T wave inversion now evident in Lateral leads Confirmed by Gigi CARDOZA ([id number]) on 06/06/2019 9:23:17 PM Referred By: MAYLIN BASURTO Confirmed By:Gigi CARDOZA
--- NOTE | 2019-06-06 21:29 | EKG ---
Test Reason : Blood Pressure : / mmHG Vent. Rate : 080 BPM Atrial Rate : 080 BPM P-R Int : 154 ms QRS Dur : 108 ms QT Int : 438 ms P-R-T Axes : 058 059 039 degrees QTc Int : 505 ms Normal sinus rhythm Nonspecific T wave abnormality Prolonged QT Abnormal ECG When compared with ECG of 04-JUN-2019 09:30, (Unconfirmed) Sinus rhythm has replaced Atrial fibrillation Vent. rate has decreased BY [address] no longer depressed in Lateral leads Nonspecific T wave abnormality has replaced inverted T waves in Inferior leads Nonspecific T wave abnormality has replaced inverted T waves in Lateral leads Confirmed by Gigi CARDOZA ([id number]) on 06/06/2019 9:29:12 PM Referred By: KELLY Confirmed By:Gigi CARDOZA
[2019-06-07] MEDS: Dexamethasone 4 mg/ml Vial SLOW IVP SCH ×5 (00:59→23:44)
[2019-06-07 05:32] LABS: Anion Gap 8 mmol/L (10-20); BUN (Urea Nitrogen) 11 mg/dL (7.0-18.7); Calc. Creatinine Clearance 175 mL/min (70-130); Calcium 8.2 mg/dL (7.8-10.44); Carbon Dioxide 29 mmol/L (22-29); Chloride 102 mmol/L (98-107); Estimated GFR-MDRD Greater than 90; Glucose 108 mg/dL (70-105); Magnesium 2.2 mg/dL (1.6-2.6); Potassium 3.6 mmol/L (3.5-5.1); Sodium 135 mmol/L (136-145)
[2019-06-07] MEDS: Pregabalin 75 MG CAP PO SCH ×2 (08:34→20:49)
[2019-06-07] MEDS: Baclofen 10 MG TAB PO SCH ×2 (08:35→20:49)
[2019-06-07] MEDS: clonazePAM 0.5 MG TAB PO SCH ×3 (08:36→20:49)
[2019-06-07] MEDS: HYDROcodone/Acetaminophen 10/325 mg Tablet PO PRN ×5 (08:41→23:45)
[2019-06-07] MEDS: DULoxetine 60 MG CAP PO SCH (08:41)
[2019-06-07] MEDS: Enoxaparin Sodium 30 MG/0.3 ML SYRINGE SC SCH ×2 (09:03→20:50)
--- NOTE | 2019-06-07 09:14 | ULT ---
EXAM: Bilateral lower extremity venous Doppler US HISTORY: bilateral lower extremity edema and pain FINDINGS: Grayscale, color-flow, Doppler evaluation, spectral analysis of the bilateral lower extremities venou s structures is performed with 2-D imaging. The bilateral common femoral, superficial femoral, popliteal, posterior tibial, proximal greater saphenous and profunda femoral veins are imaged. There is normal luminal compressibility, flow, and augmentation in the visualized deep venous structu res of the bilateral lower extremities. IMPRESSION: No evidence of a deep vein thrombosis in either lower extremity.
[2019-06-07] MEDS: Sodium Chloride 0.9% 1,000 ML IV SCH (10:16)
[2019-06-07] MEDS ORDERED: Morphine 4 MG/ML VIAL SLOW IVP SCH (14:45)
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
[2019-06-07] MEDS: Morphine 4 MG/ML VIAL SLOW IVP PRN (20:58)
[2019-06-08] MEDS: Zolpidem Tartrate 5 MG TAB PO PRN (00:49)
[2019-06-08] MEDS: Dexamethasone 4 mg/ml Vial SLOW IVP SCH ×3 (05:42→18:08)
[2019-06-08] MEDS: HYDROcodone/Acetaminophen 10/325 mg Tablet PO PRN ×5 (05:42→22:21)
[2019-06-08] MEDS: Morphine 4 MG/ML VIAL SLOW IVP PRN ×4 (06:57→20:09)
[2019-06-08] MEDS: Aspirin 81 mg Enteric Coated Tablet PO SCH (08:43)
[2019-06-08] MEDS: Pregabalin 75 MG CAP PO SCH ×2 (08:44→20:07)
[2019-06-08] MEDS: clonazePAM 0.5 MG TAB PO SCH ×3 (08:44→20:06)
[2019-06-08] MEDS: Enoxaparin Sodium 30 MG/0.3 ML SYRINGE SC SCH ×2 (08:44→20:07)
[2019-06-08] MEDS: Baclofen 10 MG TAB PO SCH ×2 (08:44→20:08)
[2019-06-08] MEDS: DULoxetine 60 MG CAP PO SCH (08:44)
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
[2019-06-09] MEDS: Dexamethasone 4 mg/ml Vial SLOW IVP SCH ×3 (00:18→21:07)
[2019-06-09] MEDS: Morphine 4 MG/ML VIAL SLOW IVP PRN ×6 (00:18→21:07)
[2019-06-09] MEDS: HYDROcodone/Acetaminophen 10/325 mg Tablet PO PRN ×6 (02:24→23:50)
[2019-06-09] MEDS: DULoxetine 60 MG CAP PO SCH (08:48)
[2019-06-09] MEDS: Pregabalin 75 MG CAP PO SCH ×2 (08:48→21:08)
[2019-06-09] MEDS: clonazePAM 0.5 MG TAB PO SCH ×3 (08:48→21:08)
[2019-06-09] MEDS: Baclofen 10 MG TAB PO SCH ×2 (08:48→21:07)
[2019-06-09] MEDS: Aspirin 81 mg Enteric Coated Tablet PO SCH (08:48)
[2019-06-09] MEDS: Enoxaparin Sodium 30 MG/0.3 ML SYRINGE SC SCH ×2 (08:49→21:06)
[2019-06-09] MEDS: Ondansetron PF 4 MG/2 ML Vial IVP PRN (14:43)
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
[2019-06-10] MEDS: Morphine 4 MG/ML VIAL SLOW IVP PRN ×6 (01:39→22:19)
[2019-06-10] MEDS: HYDROcodone/Acetaminophen 10/325 mg Tablet PO PRN ×4 (03:57→20:11)
[2019-06-10] MEDS: Levothyroxine Sodium 25 MCG TAB PO SCH (06:10)
[2019-06-10] MEDS ORDERED: Cosyntropin 250 MCG VIAL SLOW IVP SCH (08:05)
[2019-06-10] MEDS: Aspirin 81 mg Enteric Coated Tablet PO SCH (08:22)
[2019-06-10] MEDS: clonazePAM 0.5 MG TAB PO SCH ×3 (08:22→20:12)
[2019-06-10] MEDS: Baclofen 10 MG TAB PO SCH ×2 (08:22→20:10)
[2019-06-10] MEDS: DULoxetine 60 MG CAP PO SCH (08:22)
[2019-06-10] MEDS: Pregabalin 75 MG CAP PO SCH ×2 (08:24→20:10)
[2019-06-10] MEDS: Dexamethasone 4 mg/ml Vial SLOW IVP SCH ×2 (08:25→20:12)
[2019-06-10] MEDS: Enoxaparin Sodium 30 MG/0.3 ML SYRINGE SC SCH ×2 (08:25→20:11)
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
[2019-06-11] MEDS: Morphine 4 MG/ML VIAL SLOW IVP PRN ×5 (02:28→20:36)
[2019-06-11] MEDS: HYDROcodone/Acetaminophen 10/325 mg Tablet PO PRN ×4 (04:12→17:51)
[2019-06-11] MEDS: Levothyroxine Sodium 25 MCG TAB PO SCH (06:43)
[2019-06-11] MEDS: Pregabalin 75 MG CAP PO SCH ×2 (08:18→20:37)
[2019-06-11] MEDS: clonazePAM 0.5 MG TAB PO SCH ×3 (08:19→20:37)
[2019-06-11] MEDS: DULoxetine 60 MG CAP PO SCH (08:19)
[2019-06-11] MEDS: Aspirin 81 mg Enteric Coated Tablet PO SCH (08:20)
[2019-06-11] MEDS: Baclofen 10 MG TAB PO SCH ×2 (08:20→20:38)
[2019-06-11] MEDS: Enoxaparin Sodium 30 MG/0.3 ML SYRINGE SC SCH ×2 (08:20→20:47)
[2019-06-11] MEDS: Ondansetron PF 4 MG/2 ML Vial IVP PRN (08:21)
[2019-06-11] MEDS ORDERED: Hydrocortisone 10 mg Tablet PO SCH ×2 (09:00)
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
[2019-06-11 13:45] LABS: #Lymphocytes 1.8 thou/uL (1.20-3.40); #Monocytes 0.9 thou/uL (0.11-0.59); #Neutrophils 4.2 thou/uL (1.40-6.50); %Basophils 0.1 % (0.0-1.0); %Eosinophils 0.3 % (0.0-10.0); %Lymphocytes 25.6 % (21.0-51.0); %Monocytes 12.8 % (0.0-10.0); %Neutrophils 61.2 % (42.0-75.0); Hemoglobin 10.1 g/dL (12.0-16.0); Mean Corpuscular HGB CONC 31.4 g/dL (32.0-36.0); Mean Corpuscular Hemoglobin 26.8 pg (27.0-31.0); Mean Corpuscular Volume 85.3 fL (78.0-98.0); Platelet Count 185 thou/uL (130-400); RBC Distribution Width 13.9 % (11.5-14.5); Red Blood Cell (RBC) Count 3.78 mill/uL (4.20-5.40); White Blood Cell (WBC) Count 6.9 thou/uL (4.8-10.8)
[2019-06-11 14:09] LABS: Anion Gap 6 mmol/L (10-20); BUN (Urea Nitrogen) 18 mg/dL (7.0-18.7); Calc. Creatinine Clearance 178 mL/min (70-130); Calcium 8.3 mg/dL (7.8-10.44); Carbon Dioxide 30 mmol/L (22-29); Chloride 104 mmol/L (98-107); Estimated GFR-MDRD Greater than 90; Glucose 82 mg/dL (70-105); Potassium 3.7 mmol/L (3.5-5.1); Sodium 136 mmol/L (136-145)
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
[2019-06-11] MEDS: Hydrocortisone 10 mg Tablet PO SCH (20:38)
[2019-06-12] MEDS: Morphine 4 MG/ML VIAL SLOW IVP PRN ×5 (00:46→20:25)
[2019-06-12] MEDS: Ondansetron PF 4 MG/2 ML Vial IVP PRN ×2 (00:47→15:33)
[2019-06-12] MEDS: HYDROcodone/Acetaminophen 10/325 mg Tablet PO PRN ×4 (03:40→22:46)
[2019-06-12 05:29] LABS: BHCG - Serum Negative (NEGATIVE); Pregs Control Background? CLEAR/WHITE (CLR/WHITE); Pregs Control Bar Appear? YES (CONTROL BAR)
[2019-06-12] MEDS: Levothyroxine Sodium 25 MCG TAB PO SCH (05:47)
[2019-06-12] MEDS ORDERED: Lidocaine 1% (PF) 30 ML VIAL ONE (06:55)
[2019-06-12] MEDS: Baclofen 10 MG TAB PO SCH ×2 (07:03→22:39)
[2019-06-12] MEDS: DULoxetine 60 MG CAP PO SCH (07:03)
[2019-06-12] MEDS: Hydrocortisone 10 mg Tablet PO SCH ×2 (07:05→22:39)
[2019-06-12] MEDS: Pregabalin 75 MG CAP PO SCH ×2 (07:05→22:40)
[2019-06-12] MEDS: clonazePAM 0.5 MG TAB PO SCH ×3 (07:11→22:38)
[2019-06-12] MEDS ORDERED: Propofol 500 MG/50 ML VIAL ONE (08:34)
[2019-06-12] MEDS: Enoxaparin Sodium 30 MG/0.3 ML SYRINGE SC SCH ×2 (09:08→22:35)
[2019-06-12] MEDS ORDERED: Acetaminophen/Codeine 30-300mg Tablet PO PRN ×2 (10:15)
[2019-06-12] MEDS ORDERED: Iopamidol 370 76% 50 ML VIAL FS ONE (10:55)
[2019-06-12] MEDS: Aspirin 81 mg Enteric Coated Tablet PO SCH (11:05)
[2019-06-12] MEDS: Clindamycin 150 MG CAP PO SCH ×2 (13:11→17:10)
[2019-06-12] MEDS ORDERED: clonazePAM 0.5 MG TAB PO SCH (16:30)
[2019-06-13] MEDS: Clindamycin 150 MG CAP PO SCH ×4 (01:23→17:17)
[2019-06-13] MEDS: HYDROcodone/Acetaminophen 10/325 mg Tablet PO PRN ×4 (03:37→17:16)
[2019-06-13] MEDS: Levothyroxine Sodium 25 MCG TAB PO SCH (05:36)
[2019-06-13] MEDS: Morphine 4 MG/ML VIAL SLOW IVP PRN ×2 (05:36→10:28)
[2019-06-13 07:07] LABS: Factor VIII Test 219.3 % ACTIVE (56-157)
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
[2019-06-13] MEDS: Enoxaparin Sodium 30 MG/0.3 ML SYRINGE SC SCH (08:48)
[2019-06-13] MEDS: Aspirin 81 mg Enteric Coated Tablet PO SCH (08:49)
[2019-06-13] MEDS: DULoxetine 60 MG CAP PO SCH (08:49)
[2019-06-13] MEDS: Hydrocortisone 10 mg Tablet PO SCH (08:50)
[2019-06-13] MEDS: clonazePAM 0.5 MG TAB PO SCH ×2 (08:50→15:04)
[2019-06-13] MEDS: Baclofen 10 MG TAB PO SCH (08:50)
[2019-06-13] MEDS: Pregabalin 75 MG CAP PO SCH (08:50)
--- NOTE | 2019-06-13 09:38 | RAD ---
Chest 2 views HISTORY: Pacemaker placement COMPARISON: 04/13/2019. FINDINGS: Cardiac silhouette and pulmonary vasculature are unremarkable. Mediastinum is midline. A du al lead left subclavian cardiac electronic device is now in place with leads overlying the right atrium and right ventricle. No evidence of pneumothorax or pleural fluid. Postoperative changes thoracolumbar spine partially vis ualized. IMPRESSION: New left subclavian cardiac pacer in good radiographic position.
[2019-06-13 15:34] VITALS: TEMP 97.9
[2019-06-13 18:02] VITALS: BP 114/71
[2019-06-14] MEDS ORDERED: Hydrocortisone 10 mg Tablet PO SCH (09:00)
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
== END 2019-06-13 19:59 | DRG 41 ==
LOC: ERS 14:52 → IMCU/EMU 20:34 → SURG A 06-02 13:23 → 2SE 06-04 12:33
PROVIDERS: ADMIT Family Medicine; ATTEND Family Medicine
PROC: 0JH606Z Insertion of Pacemaker, Dual Chamber into Chest Subcutaneous Tissue and Fascia, Open Approach (ICD-10-PCS; principal; 2019-06-01)
PROC: 02HK3JZ Insertion of Pacemaker Lead into Right Ventricle, Percutaneous Approach (ICD-10-PCS; 2019-06-01)
PROC: 02H63JZ Insertion of Pacemaker Lead into Right Atrium, Percutaneous Approach (ICD-10-PCS; 2019-06-01)
PROC: 30233S1 Transfusion of Nonautologous Globulin into Peripheral Vein, Percutaneous Approach (ICD-10-PCS; 2019-06-01)
DX: G61.0 Guillain-Barre syndrome (principal); G83.4 Cauda equina syndrome; E23.0 Hypopituitarism; E27.40 Unspecified adrenocortical insufficiency; I48.91 Unspecified atrial fibrillation; M62.81 Muscle weakness (generalized); R20.8 Other disturbances of skin sensation; E07.81 Sick-euthyroid syndrome; M51.9 Unspecified thoracic, thoracolumbar and lumbosacral intervertebral disc disorder; R20.2 Paresthesia of skin; Z90.49 Acquired absence of other specified parts of digestive tract; Z98.84 Bariatric surgery status
CPT/HCPCS: 33208; 36415; 36416; 51702; 70553; 71046; 71275; 72128; 72131; 72141; 72146; 72148; 72158; 75635; 75820; 80048; 80053; 80400; 82533; 83735; 84439; 84443; 84484; 84703; 85025; 85240; 85250; 85598; 85610; 85613; 85652; 85730; 86140; 86146; 86147; 86160; 86225; 93005; 93010; 93306; 93970; 96374; 96375; 96376; A9579; C1785; C1898; J0690; J0834; J1100; J1568; J1650; J2001; J2270; J2405; J2704; J3490; Q9967

== ENCOUNTER 2019-07-14 17:06 | Inpatient (IN) | payer OTHER ==
[2019-07-14] MEDS ORDERED: Ketorolac Tromethamine 30 MG/ML VIAL ONE (17:45)
[2019-07-14] MEDS ORDERED: Ondansetron ODT 4 MG TAB ONE (17:45)
[2019-07-14 17:46] LABS: #Lymphocytes 2.2 thou/uL (1.20-3.40); #Monocytes 0.6 thou/uL (0.11-0.59); #Neutrophils 5.5 thou/uL (1.40-6.50); %Basophils 0.5 % (0.0-1.0); %Eosinophils 0.2 % (0.0-10.0); %Lymphocytes 26.4 % (21.0-51.0); %Monocytes 6.9 % (0.0-10.0); %Neutrophils 65.9 % (42.0-75.0); Mean Corpuscular HGB CONC 30.4 g/dL (32.0-36.0); Mean Corpuscular Hemoglobin 25.1 pg (27.0-31.0); Mean Corpuscular Volume 82.5 fL (78.0-98.0); Mean Platelet Volume 7.7 fL (7.4-10.4); Platelet Count 262 thou/uL (130-400); RBC Distribution Width 14.9 % (11.5-14.5); Red Blood Cell (RBC) Count 4.39 mill/uL (4.20-5.40); White Blood Cell (WBC) Count 8.3 thou/uL (4.8-10.8)
[2019-07-14 18:10] LABS: Anion Gap 12 mmol/L (10-20); BUN (Urea Nitrogen) 8 mg/dL (7.0-18.7); Calc. Creatinine Clearance 0 mL/min (70-130); Calcium 9.5 mg/dL (7.8-10.44); Carbon Dioxide 25 mmol/L (22-29); Chloride 104 mmol/L (98-107); Estimated GFR-MDRD 88; Glucose 86 mg/dL (70-105); Potassium 3.5 mmol/L (3.5-5.1); Sodium 137 mmol/L (136-145)
[2019-07-14 18:14] LABS: Bilirubin Negative (Negative); Blood, Urine Negative (Negative); Clarity Clear (Clear); Glucose, Urine (Dipstick) Normal (Negative); Leukocyte Negative Leu/uL (Negative); Nitrite Negative (Negative); Protein, Urine (Dipstick) Negative (Neg-Trace); Urobilinogen Normal mg/dL (Less than 2)
[2019-07-14] MEDS ORDERED: Ondansetron ODT 4 MG TAB PO PRN (18:42)
[2019-07-14] MEDS ORDERED: Acetaminophen 325 MG TAB PO PRN (18:42)
[2019-07-14] MEDS ORDERED: Acetaminophen 650 MG Suppository PR PRN (18:42)
[2019-07-14] MEDS ORDERED: Ondansetron PF 4 MG/2 ML Vial IVP PRN (18:42)
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
--- NOTE | 2019-07-14 20:06 | CT ---
CT thoracic spine spine without IV contrast INDICATION: Back pain with neural deficits and recent back surgery Comparison: CT of the thoracic spine dated June 02, [address] the chest dated April 13, 2019 FINDINGS: No acute fracture is evident. The chronic superior endplate compression abnormality of T3, T5, T8, T 9 and T10 are stable appearing. L1 burst fracture is stable. There is partial visualization of spinal instrumentation of the thoracolumbar spine that is better detailed on the CT the lumbar spine. Visualized lungs are clear. The visualized upper retroperitoneum is unremarkable appearing. IMPRESSION: No acute fracture or subluxation demonstrated.
[2019-07-14] MEDS: HYDROcodone/Acetaminophen 5/325 mg Tablet PO PRN (21:02)
[2019-07-14] MEDS: Famotidine/PF 20 mg/2ml Vial SLOW IVP SCH (21:03)
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
[2019-07-14] MEDS: Morphine 2 MG/ML SYRINGE SLOW IVP PRN (22:42)
[2019-07-14] MEDS ORDERED: tiZANidine HCl 4 MG TAB PO PRN (23:17)
[2019-07-15] MEDS: Zolpidem Tartrate 5 MG TAB PO PRN ×2 (00:13→23:31)
[2019-07-15] MEDS: HYDROcodone/Acetaminophen 5/325 mg Tablet PO PRN ×5 (01:03→19:49)
[2019-07-15] MEDS: Dexamethasone 4 mg/ml Vial SLOW IVP SCH ×4 (01:03→21:25)
[2019-07-15 01:16] VITALS: BMI 34.5
[2019-07-15] MEDS: Morphine 2 MG/ML SYRINGE SLOW IVP PRN ×5 (03:44→22:21)
[2019-07-15 04:44] LABS: #Lymphocytes 0.5 thou/uL (1.20-3.40); #Neutrophils 4.8 thou/uL (1.40-6.50); %Eosinophils 0.1 % (0.0-10.0); %Lymphocytes 9.7 % (21.0-51.0); %Monocytes 0.6 % (0.0-10.0); %Neutrophils 89.6 % (42.0-75.0); Hemoglobin 10.4 g/dL (12.0-16.0); Mean Corpuscular HGB CONC 30.3 g/dL (32.0-36.0); Mean Corpuscular Hemoglobin 25.2 pg (27.0-31.0); Mean Corpuscular Volume 83.1 fL (78.0-98.0); Mean Platelet Volume 7.7 fL (7.4-10.4); Platelet Count 249 thou/uL (130-400); RBC Distribution Width 14.8 % (11.5-14.5); Red Blood Cell (RBC) Count 4.14 mill/uL (4.20-5.40); White Blood Cell (WBC) Count 5.3 thou/uL (4.8-10.8)
[2019-07-15 04:59] LABS: Anion Gap 12 mmol/L (10-20); BUN (Urea Nitrogen) 8 mg/dL (7.0-18.7); Calc. Creatinine Clearance 145 mL/min (70-130); Carbon Dioxide 24 mmol/L (22-29); Chloride 103 mmol/L (98-107); Estimated GFR-MDRD 88; Glucose 142 mg/dL (70-105); Potassium 4.6 mmol/L (3.5-5.1); Sodium 134 mmol/L (136-145)
[2019-07-15] MEDS: Levothyroxine Sodium 25 MCG TAB PO SCH (05:44)
--- NOTE | 2019-07-15 07:38 | PDOC.HOSPP ---
- Subjective Encounter Date: 07/15/19 Encounter Time: 07:31 Subjective: CO severe back pain, weakness in legs - Objective Vital Signs & Weight: Vital Signs (12 hours) Temp Pulse Resp BP Pulse Ox 07/15/19 03:50 98.3 F 94 16 134/86 95 07/14/19 23:03 97.9 F 81 15 134/98 H 96 07/14/19 20:05 98.3 F 82 16 147/103 H 98 Weight Weight 195 lb Result Diagrams: 07/15/19 04:25 07/15/19 04:25 Hospitalist ROS - Medication Medications: Active Medications Generic Name Dose Route Start Last Admin Trade Name Freq PRN Reason Stop Dose Admin Hydrocodone Bitart/Acetaminophen 2 tab 07/14/19 20:49 07/15/19 05:44 [place] 5/325 PO 2 tab Q4H PRN Administration Moderate to Severe Pain (6-10) Dexamethasone 4 mg 07/15/19 02:00 07/15/19 01:03 Decadron SLOW IVP 4 mg 0200,0800,1400,2000 HUEY Administration Famotidine 20 mg 07/14/19 21:00 07/14/19 21:03 Pepcid SLOW IVP 20 mg Q12HR HUEY Administration Levothyroxine Sodium 25 mcg 07/15/19 06:00 07/15/19 05:44 Synthroid PO 25 mcg 0600 HUEY Administration Morphine Sulfate 2 mg 07/14/19 20:50 07/15/19 03:44 Morphine SLOW IVP 2 mg Q4H PRN Administration Severe Pain (7-10) Sodium Chloride 10 ml 07/14/19 18:42 07/15/19 03:45 Flush - Normal Saline IVF 10 ml Q12H PRN Administration Saline Flush Zolpidem Tartrate 10 mg 07/14/19 23:17 07/15/19 00:13 Ambien PO 10 mg HSPRN PRN Administration Insomnia - Exam General Appearance: awake alert Neck: no JVD Heart: RRR, no murmur Respiratory: CTAB, no wheezes Gastrointestinal: soft, normal bowel sounds Extremities: no edema Neurological - other findings: dtrs normal in legs, gives way on strenth testing Hosp A/P (1) Back pain Code(s): M54.9 - DORSALGIA, UNSPECIFIED Status: Acute Qualifiers: Back pain location: low back pain Chronicity: acute Back pain laterality : midline Sciatica presence: unspecified whether sciatica present Qualified Code(s): M54.5 - Low back pain (2) Lower extremity numbness Code(s): R20.0 - ANESTHESIA OF SKIN Status: Acute (3) Lower extremity weakness Code(s): R29.898 - OTH SYMPTOMS AND SIGNS INVOLVING THE MUSCULOSKELETAL SYSTEM Status: Acute Qualifiers: Laterality: bilateral Qualified Code(s): R29.898 - Other symptoms and signs involving the musculoskeletal system (4) Control of atrial fibrillation with pacemaker Code(s): I48.91 - UNSPECIFIED ATRIAL FIBRILLATION; Z95.0 - PRESENCE OF CARDIAC PACEMAKER Status: Chronic (5) History of Guillain-[place] syndrome Code(s): Z86.69 - PERSONAL HISTORY OF DIS OF THE NERVOUS SYS AND SENSE ORGANS Status: Chronic (6) History of spinal surgery Code(s): Z98.890 - OTHER SPECIFIED POSTPROCEDURAL STATES Status: Chronic (7) Guillain-[place] Code(s): G61.0 - GUILLAIN-BARRE SYNDROME Status: Resolved (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
[2019-07-15] MEDS: clonazePAM 0.5 MG TAB PO SCH ×3 (08:44→21:24)
[2019-07-15] MEDS: Famotidine/PF 20 mg/2ml Vial SLOW IVP SCH ×2 (08:44→21:25)
[2019-07-15] MEDS: Pregabalin 50 MG CAP PO SCH ×3 (08:45→21:24)
[2019-07-15] MEDS: DULoxetine 60 MG CAP PO SCH (08:46)
[2019-07-15] MEDS ORDERED: Metoprolol Tartrate 25 MG TAB PO SCH (12:45)
[2019-07-15] MEDS ORDERED: Prevnar 13-Val Conj/PF 0.5 ML SYRINGE IM ONE (21:00)
[2019-07-16] MEDS: Dexamethasone 4 mg/ml Vial SLOW IVP SCH (02:55)
[2019-07-16] MEDS: HYDROcodone/Acetaminophen 5/325 mg Tablet PO PRN (03:13)
[2019-07-16] MEDS: Levothyroxine Sodium 25 MCG TAB PO SCH (06:04)
[2019-07-16] MEDS: Morphine 2 MG/ML SYRINGE SLOW IVP PRN (06:06)
--- NOTE | 2019-07-16 07:24 | PDOC.HOSPP ---
- Subjective Encounter Date: 07/16/19 Encounter Time: 07:20 Subjective: co severe back pain while moving easily in bed - Objective Vital Signs & Weight: Vital Signs (12 hours) Temp Pulse Resp BP Pulse Ox 07/16/19 04:00 97.4 F L 62 18 127/67 100 07/16/19 02:58 97.6 F 85 18 109/77 99 07/16/19 00:00 98.7 F 80 18 117/84 94 L 07/15/19 23:32 79 123/82 07/15/19 20:41 97.2 F L 91 18 135/80 95 Weight Weight 195 lb I&O: 07/15/19 07/16/19 07/17/19 06:59 06:59 06:59 Intake Total 1941 Balance 194 Result Diagrams: 07/15/19 04:25 07/15/19 04:25 Hospitalist ROS - Medication Medications: Active Medications Generic Name Dose Route Start Last Admin Trade Name Freq PRN Reason Stop Dose Admin Clonazepam 0.5 mg 07/15/19 09:00 07/15/19 21:24 Klonopin PO 0.5 mg TID HUEY Administration Duloxetine HCl 120 mg 07/15/19 09:00 07/15/19 08:46 Cymbalta PO 120 mg DAILY HUEY Administration Famotidine 20 mg 07/14/19 21:00 07/15/19 21:25 Pepcid SLOW IVP 20 mg Q12HR HUEY Administration Levothyroxine Sodium 25 mcg 07/15/19 06:00 07/16/19 06:04 Synthroid PO 25 mcg 0600 HUEY Administration Pregabalin 100 mg 07/15/19 09:00 07/15/19 21:24 Lyrica PO 100 mg TID HUEY Administration Sodium Chloride 10 ml 07/14/19 18:42 07/15/19 21:26 Flush - Normal Saline IVF 10 ml Q12H PRN Administration Saline Flush Sodium Chloride 10 ml 07/14/19 18:42 07/16/19 02:55 Flush - Normal Saline IVF 10 ml PRN PRN Administration Saline Flush Zolpidem Tartrate 10 mg 07/14/19 23:17 07/15/19 23:31 Ambien PO 10 mg HSPRN PRN Administration Insomnia - Exam General Appearance: awake alert Neck: no JVD Heart: RRR, no murmur Respiratory: CTAB Gastrointestinal: soft, normal bowel sounds Extremities: no edema Neurological - other findings: DTRs normal in legs, gives way on strength testing Hosp A/P (1) Back pain Code(s): M54.9 - DORSALGIA, UNSPECIFIED Status: Acute Qualifiers: Back pain location: low back pain Chronicity: acute Back pain laterality : midline Sciatica presence: unspecified whether sciatica present Qualified Code(s): M54.5 - Low back pain (2) Lower extremity numbness Code(s): R20.0 - ANESTHESIA OF SKIN Status: Acute (3) Lower extremity weakness Code(s): R29.898 - OTH SYMPTOMS AND SIGNS INVOLVING THE MUSCULOSKELETAL SYSTEM Status: Acute Qualifiers: Laterality: bilateral Qualified Code(s): R29.898 - Other symptoms and signs involving the musculoskeletal system (4) Control of atrial fibrillation with pacemaker Code(s): I48.91 - UNSPECIFIED ATRIAL FIBRILLATION; Z95.0 - PRESENCE OF CARDIAC PACEMAKER Status: Chronic (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
[2019-07-16 07:51] VITALS: TEMP 98.4
[2019-07-16] MEDS: clonazePAM 0.5 MG TAB PO SCH (08:26)
[2019-07-16] MEDS: Pregabalin 50 MG CAP PO SCH (08:26)
[2019-07-16] MEDS: DULoxetine 60 MG CAP PO SCH (08:27)
[2019-07-16] MEDS: Famotidine/PF 20 mg/2ml Vial SLOW IVP SCH (08:28)
--- NOTE | 2019-07-16 10:31 | PDOC.EVN ---
Event Note - Event Note Event Note: long discussion with patients mother about situation
[2019-07-16 12:21] VITALS: BP 139/82
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
--- NOTE | 2019-07-17 13:38 | EKG ---
Test Reason : TACHYCARDIA Blood Pressure : / mmHG Vent. Rate : 133 BPM Atrial Rate : 133 BPM P-R Int : 130 ms QRS Dur : 104 ms QT Int : 294 ms P-R-T Axes : 061 046 034 degrees QTc Int : 437 ms Sinus tachycardia Nonspecific ST and T wave abnormality Abnormal ECG When compared with ECG of 12-JUN-2019 09:43, Vent. rate has increased BY [address] now depressed in Anterolateral leads Nonspecific T wave abnormality now evident in Inferior leads Nonspecific T wave abnormality now evident in Lateral leads Confirmed by KAYLA OQUENDO (2) on 07/17/2019 1:37:43 PM Referred By: STEPHANIE Confirmed By:KAYLA OQUENDO
== END 2019-07-16 12:43 | disposition home or self-care (01) | DRG 552 ==
LOC: ERS 17:06 → 2SE 20:36
PROVIDERS: ADMIT Family Medicine; ATTEND Family Medicine
DX: M54.5 Low back pain (principal); E23.0 Hypopituitarism; I48.91 Unspecified atrial fibrillation; F41.9 Anxiety disorder, unspecified; F32.9 Major depressive disorder, single episode, unspecified; I49.5 Sick sinus syndrome; R29.898 Other symptoms and signs involving the musculoskeletal system; Z86.69 Personal history of other diseases of the nervous system and sense organs; Z95.0 Presence of cardiac pacemaker; Z98.1 Arthrodesis status; Z88.1 Allergy status to other antibiotic agents; Z88.8 Allergy status to other drugs, medicaments and biological substances; Z28.21 Immunization not carried out because of patient refusal
CPT/HCPCS: 36415; 72128; 72131; 80048; 81003; 85025; 93005; 93010; 96372; J1100; J1885; J2270; Q0162; S0028